=== PATIENT | male | born 1960 | race Caucasian/White ===

== ENCOUNTER → 2023-11-02 11:52 | Outpatient (CLI) | payer OTHER, SELFPAY ==
--- NOTE | 2023-11-02 11:54 | DI.RAD.S_ITS ---
PROCEDURE: XR SHOULDER RT MIN 2V INDICATIONS: right shoulder pain TECHNIQUE: 3 views of the shoulder were acquired. COMPARISON: None. FINDINGS: Bones: No fractures or dislocations. No suspicious bony lesions. Visualized ribs appear intact. Glenohumeral joint degenerative change. Soft tissues: No suspicious soft tissue calcifications. IMPRESSION: Glenohumeral joint degenerative change. No evidence acute bony abnormality. If clinical suspicion and/or symptoms persist, further assessment with repeat plain films, or advanced imaging (e.g., CT, MRI, or bone scan) may be helpful for further assessment. Dictated by: Ger Del Real M.D. on 11/02/2023 at 14:46 Approved by: Ger Del Real M.D. on 11/02/2023 at 14:47
== END ==
PROVIDERS: PCP Family Medicine; Referring Provider Family Medicine; Visit Provider Family Medicine
DX: M25.511 Pain in right shoulder (principal)
CPT/HCPCS: 73030

== ENCOUNTER → 2023-11-06 10:22 | Outpatient (CLI) | payer OTHER, SELFPAY ==
[2023-11-06 10:55] LABS: Add Manual Diff / Slide Review NO; Basophils Absolute Auto 0 /uL (0-100); Basophils Percent Auto 1.1 % (0-2); Eosinophils Absolute Auto 200 /uL (0-450); Hematocrit 39.4 % (41-53); Hemoglobin 13.6 g/dL (13.5-17.5); Lymphocytes Absolute Auto 1200 /uL (1100-4500); Lymphocytes Percent Auto 34.6 % (25-40); Mean Corpuscular HGB Conc 34.6 % (30-36); Mean Corpuscular Hemoglobin 31.5 PG (26-34); Mean Corpuscular Volume 91.1 fL (80-100); Monocytes Absolute Auto 400 /uL (0-900); Monocytes Percent Auto 10.1 % (3-14); Neutrophils Absolute Auto 1700 /uL (1500-7000); Neutrophils Percent Auto 49.2 % (50-75); Platelet Count 212 X10^3/uL (150-400); Red Blood Cell Count 4.33 X10^6/uL (4.5-5.9); Red Cell Distribution Width 13.4 % (11.6-14.8); White Blood Cell Count 3.5 X10^3/uL (4.5-11.0)
[2023-11-06 10:57] LABS: HEMOLYSIS < 15 (0-50)
[2023-11-06 11:03] LABS: Alanine Aminotransferase 17 IU/L (<50); Albumin 4.2 g/dL (3.5-5.0); Albumin Globulin Ratio 1.3 (1.0-2.8); Alkaline Phosphatase 29 U/L (38-126); Aspartate Aminotransferase 25 IU/L (17-59); BUN Creatinine Ratio 21.6 (6-22); Bilirubin Total 1.1 mg/dL (0.2-1.3); Blood Urea Nitrogen 16 mg/dL (9-20); Calcium 9.4 mg/dL (8.4-10.2); Carbon Dioxide 28 mmol/L (22-32); Chloride 102 mmol/L (98-107); Cholesterol 222 mg/dL (140-199); Estimated Glomerular Filt Rate > 60 mL/min (>60); Globulin 3.2 g/dL (1.7-4.1); Glucose 94 mg/dL (80-110); HDL Cholesterol 68 mg/dL (40-60); LDL Cholesterol Calculated 140 mg/dL (<100); Potassium 4.5 mmol/L (3.4-5.1); Sodium 137 mmol/L (137-145); Total Protein 7.4 g/dL (6.3-8.2); Triglycerides 71 mg/dL (35-150)
[2023-11-06 11:25] LABS: Vitamin D 25 Hydroxy (D3) 56.1 ng/mL (30.0-100.0)
== END ==
PROVIDERS: PCP Family Medicine; Referring Provider Family Medicine; Visit Provider Family Medicine
DX: Z13.6 Encounter for screening for cardiovascular disorders (principal); Z12.5 Encounter for screening for malignant neoplasm of prostate; R53.83 Other fatigue; D64.9 Anemia, unspecified
CPT/HCPCS: 36415; 80053; 80061; 82306; 84153; 84443; 85025

== ENCOUNTER 2024-03-26 10:30 | Outpatient (RCR) | payer OTHER, SELFPAY ==
--- NOTE | 2023-12-26 16:01 | PT.OIE ---
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 PT-OP-B Current Condition Start: 12/21/23 17:44 Freq: Status: Active Protocol: Document 12/26/23 09:47 LRN (Rec: 12/26/23 11:22 LRN [id number]) Current Condition History of Current Condition Onset Date 11/2023 Current Complaints Can't lift R arm past shoulder height at work. History of Current Condition Insidious onset of R shoulder pain a couple years ago. Possibly from over use while recovering from L clavical fracture or too much biking ( 2000 miles/yr). Pt referred to physical therapy after being seen by his doctor during a physical due to R shoulder weakness. [place] he tripped backing up over a log and valentin the R shoulder (no fall or stabilization with the R arn needed) and wasn't able to lift the arm higher than shoulder height afterward due to the pain. Prior to the stumble (4 months ago), he couldn't lift a 2# wgt past shoulder height. Prior Treatments and Tests In [place], Cortisone injection ~February 2022 and PT with resolution of pain. 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 Developmental History Developmental History PT after L clavicle fracture in [facility] 4 yrs ago. Has residual pain in L shoulder. 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 Moved to [place] last year. Treatment Goals Patient/Caregiver Goals Pt goal: PT before having cortisone injection if needed. Able to reach overhead with minimal to no pain with R arm Able to do saw motion or hammer nail with minimal to no pain (currently pain is 4-5/ 10). Sleeping w/o pain. Bike without pain. 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 Therapy/Recovery Plans to retire in a few months. PT-OP-C Subjective Start: 12/21/23 17:44 Freq: Status: Active Protocol: Document 12/26/23 09:47 LRN (Rec: 12/26/23 11:22 LRN [id number]) Patient Questionnaires Quick Dash- Upper Extremity Quick Dash UE Score 18 Quick Dash UE Impairment 1 to 19% Impaired (Score 1-19) OP-PT Pain Assessment Pain Assessment Grid Paper Pain Assessment Grid Completed Yes Location R shoulder Pain Location Details R shoulder pain, subacromially . Intensity 4 Scale Used Numeric (0 - 10) Description Sharp Frequency Intermittent Pain Duration Short if moving out of painful position. Variations/Patterns Pain only with reaching out to side or sawing/hammering motion. Other Pain Aggravating Factors Sawing & hammering motion. Pain Alleviating Factors Cold Other Pain Alleviating Factors Stopping the motion that causes the pain. Hot tub. PT-OP-J Posture/Palpation/Skin Start: 12/21/23 17:44 Freq: Status: Active Protocol: Document 12/26/23 09:47 LRN (Rec: 12/26/23 11:22 LRN [id number]) Posture Evaluation Position Standing Head/C-Spine Posture Forward Head T-Spine Posture Increased Kyphosis L-Spine Posture Increased Lordosis Shoulder Posture (L) Rounded,(R) Rounded,(L) Elevated Scapula Posture (R) Retracted,(R) Rotated Up Arm Posture (L) Neutral,(R) Neutral Palpation Assessment Location R shoulder Palpation Location Shoulder joint and scapular muscles Palpation Details No tenderness. Atrophy of R shoulder/neck ms. PT-OP-K Range of Motion Start: 12/21/23 17:44 Freq: Status: Active Protocol: Document 12/26/23 09:47 LRN (Rec: 12/26/23 11:22 LRN [id number]) Cervical Spine Range of Motion Cervical Spine Active Percentage Testing Position Sitting Rotation Right 90 Lateral Flexion Right 90 ROM Limitations Soft Tissue Tightness Comments 100% mobility except as indicated above. Shoulder Goniometric Range of Motion Shoulder Right Active Shoulder ROM WFL No Testing Position Sitting Flexion 155 Extension 60 Abduction 155 External Rotation at 0 degrees Abduction 90 Internal Rotation Behind Back (text) T10 Left Active Testing Position Sitting Flexion 135 Extension 70 Abduction 70 External Rotation at 0 degrees Abduction 90 Internal Rotation Behind Back (text) T11 PT-OP-L Special Tests Start: 12/21/23 17:44 Freq: Status: Active Protocol: Document 12/26/23 09:47 LRN (Rec: 12/26/23 11:22 LRN [id number]) Special Tests Cervical Spine Special Tests Foraminal Compression Test Results - Spurling's Test Test Results - bilaterally Shoulder Special Tests Biceps Load II Test Test Results - R shoulder Belly Press Test Results - R shoulder Empty Can Test Results - R shoulder Elevation Impingement Test Results + R shoulder Comments Pain IR/Horizontal ADD Impingement Test Results - R shoulder PT-OP-M Strength Start: 12/21/23 17:44 Freq: Status: Active Protocol: Document 12/26/23 09:47 LRN (Rec: 12/26/23 11:22 LRN [id number]) Cervical Spine Strength Cervical Spine Manual Muscle Testing Testing Position Sitting Comments Strength is 5/5 w/o complaints of pain. Shoulder Strength Shoulder Manual Muscle Testing Right Comments Strength is 5/5 with pain on testing of shoulder AD and horiz AB Left Comments Strength is 5/5 PT-OP-Q Treatments Start: 12/21/23 17:44 Freq: Status: Active Protocol: Document 12/26/23 09:47 LRN (Rec: 12/26/23 11:22 LRN [id number]) Manual Therapy Treatment Manual Techniques MWM for shoulder AB Type MWM: R scap retract with shoulder AB Body Position Sitting Comments Pain decreased from 4-5/10 to 2/10. Self-Care/Home Management Treatment Education Patient Education Home Exercise Program,Pain Management Other Education Discussed results of evaluation, goals, and plan of care (POC). Pt agreeable to goals and POC. Discussed and educated pt in use of cryotherapy vs MH (hot tub), when most appropriate to use each with injury. Briefly educated pt in his postural deviations and mechanics of shoulder for correct postioning for reaching out to side and up. Activities Self-Care/Home Management Activities I/S pt in Home ex: Stretching pecs on his home TBall. I/S pt to prevent slumping of thoracic spine. I/S pt to keep hand position of thumbs up when reaching/ lifting overhead and palm up when reaching out to side. PT-OP-T Assessment and Plan Start: 12/21/23 17:44 Freq: Status: Active Protocol: Document 12/26/23 09:47 LRN (Rec: 12/26/23 11:22 LRN [id number]) Physical Therapy Assessment Rehab Potential Rehabilitation Potential Excellent Evaluation Complexity Number of Personal Factors/Comorbidities 1-2 Number of Body Systems Impaired 4 or More Clinical Presentation at Evaluation Evolving Impairments Impairments Activity Tolerance,Pain, Posture,ROM,Soft Tissue Mobility Goals Three Impairment R shoulder pain interferring with sleep and recreational biking Short Term Goal (STG) Pt will modify his sleeping positions to be able to sleep at night without pain. STG Duration 4 wks-01/26/24 Metal Cleaner Goal (LTG) Pt will be able to bike outdoors for short rides without pain. LTG Duration 8 wks-02/23/24 Two Impairment R shoulder pain with saw and hammer motions interfering w/ home function Short Term Goal (STG) Pt able to reach overhead with minimal to no pain with R arm to decrease pain at work. STG Duration 4 wks-01/26/24 [facility] Goal (LTG) Able to do saw motion or hammer nail with minimal to no pain (currently pain is 4-5/ 10). Sleeping w/o pain. Bike without pain. LTG Duration 8 wks-02/23/24 One Impairment Pt lacks appropriate self care HEP Short Term Goal (STG) Pt will be educated in proper posturing (sit/stand), and in best nighttime sleeping positions. STG Duration 2 wks-01/12/24 [facility] Goal (LTG) Pt will be educate in a self care HEP of R shoulder/neck/ scapular/thoracic strengthening and thoracic mobility and L neck/shoulder relaxation stretch. LTG Duration 8 wks-02/23/24 Assessment Summary Assessment Pt is a 63 yo male who presents with soft tissue dysfunction (scap stabilizers) & mechanical dysfunction of the R shoulder resulting in subacromial pain with reaching overhead and laterally. He presents with postural changes of increased thoracic kyophosis, fwd rounded R shoulder, & scapular upward rotation resulting in impingement with R shoulder AB , horiz AB, & end-range flexion. The pt will benefit from skilled physical therapy to improve his posture and soft tissue dysfunctions, and improve mechanics of his R shoulder for improved function at work and at home. Physical Therapy Plan Frequency and Duration Frequency of Treatment 1x/Week Duration of treatment (weeks) 8 Plan of Care Start Date 12/26/23 Plan of Care End Date 02/23/24 Therapeutic Interventions Therapeutic Interventions Home Exercise Program,Joint Mobilizations,Manual Therapy, Neuromuscular Re-education, Patient/Caregiver Education, Self-Care/Home Management,Soft Tissue Mobilization,Taping, Therapeutic Exercises Modalities Cold Pack/Ice Massage,Electric Stimulation,Hot Packs, Ultrasound Next Visit Focus/Plan Next Note Type Treatment Note Next Visit Plan Pt to be on HEP as soon as possible due to his distance of travel from [place] for PT. Next: Pt education in proper posturing (sit/stand), and in best nighttime sleeping positions. HEP of postural ex's and R scapular stabilizers. Manual: MWM for painfree R shoulder AROM for sawing and hammering motions, postioning for biking, and lifting for work. Exer: R neck/shoulder strengthening and relaxation of L neck/ shoulder ms. Modalities as needed for pain.
--- NOTE | 2023-12-26 16:01 | PT.OPPOC ---
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 Address: [address] [place] [address], [id number] Email: [email or web address] Plan Of Care PT-OP-T Assessment and Plan Start: 12/21/23 17:44 Freq: Status: Active Protocol: Document 12/26/23 09:47 LRN (Rec: 12/26/23 11:22 LRN [id number]) Physical Therapy Assessment Rehab Potential Rehabilitation Potential Excellent Evaluation Complexity Number of Personal Factors/Comorbidities 1-2 Number of Body Systems Impaired 4 or More Clinical Presentation at Evaluation Evolving Impairments Impairments Activity Tolerance,Pain, Posture,ROM,Soft Tissue Mobility Goals Three Impairment R shoulder pain interferring with sleep and recreational biking Short Term Goal (STG) Pt will modify his sleeping positions to be able to sleep at night without pain. STG Duration 4 wks-01/26/24 Account Development Executive Goal (LTG) Pt will be able to bike outdoors for short rides without pain. LTG Duration 8 wks-02/23/24 Two Impairment R shoulder pain with saw and hammer motions interfering w/ home function Short Term Goal (STG) Pt able to reach overhead with minimal to no pain with R arm to decrease pain at work. STG Duration 4 wks-01/26/24 Jail Goal (LTG) Able to do saw motion or hammer nail with minimal to no pain (currently pain is 4-5/ 10). Sleeping w/o pain. Bike without pain. LTG Duration 8 wks-02/23/24 One Impairment Pt lacks appropriate self care HEP Short Term Goal (STG) Pt will be educated in proper posturing (sit/stand), and in best nighttime sleeping positions. STG Duration 2 wks-01/12/24 Account Development Executive Goal (LTG) Pt will be educate in a self care HEP of R shoulder/neck/ scapular/thoracic strengthening and thoracic mobility and L neck/shoulder relaxation stretch. LTG Duration 8 wks-02/23/24 Assessment Summary Assessment Pt is a 63 yo male who presents with soft tissue dysfunction (scap stabilizers) & mechanical dysfunction of the R shoulder resulting in subacromial pain with reaching overhead and laterally. He presents with postural changes of increased thoracic kyophosis, fwd rounded R shoulder, & scapular upward rotation resulting in impingement with R shoulder AB , horiz AB, & end-range flexion. The pt will benefit from skilled physical therapy to improve his posture and soft tissue dysfunctions, and improve mechanics of his R shoulder for improved function at work and at home. Physical Therapy Plan Frequency and Duration Frequency of Treatment 1x/Week Duration of treatment (weeks) 8 Plan of Care Start Date 12/26/23 Plan of Care End Date 02/23/24 Therapeutic Interventions Therapeutic Interventions Home Exercise Program,Joint Mobilizations,Manual Therapy, Neuromuscular Re-education, Patient/Caregiver Education, Self-Care/Home Management,Soft Tissue Mobilization,Taping, Therapeutic Exercises Modalities Cold Pack/Ice Massage,Electric Stimulation,Hot Packs, Ultrasound Next Visit Focus/Plan Next Note Type Treatment Note Next Visit Plan Pt to be on HEP as soon as possible due to his distance of travel from [place] for PT. Next: Pt education in proper posturing (sit/stand), and in best nighttime sleeping positions. HEP of postural ex's and R scapular stabilizers. Manual: MWM for painfree R shoulder AROM for sawing and hammering motions, postioning for biking, and lifting for work. Exer: R neck/shoulder strengthening and relaxation of L neck/ shoulder ms. Modalities as needed for pain. Plan of Care Dates Plan of Care Start Date 12/26/23 Plan of Care End Date 02/23/24 Electronically Signed by: Cathie Kohler, PT 12/26/23 8033 If you are in agreement with this Plan of Care, please return a signed and dated copy. I have reviewed this Plan of Care and certify that the skilled therapy services above are required to meet the patient?s needs. Physician Signature Date Printed Name and Credentials Clinical Instructor Signature Printed Name and Credentials
--- NOTE | 2023-12-28 12:28 | PT.OTN ---
Current Diagnoses Other chronic pain (12/28/23) Pain in right shoulder (12/28/23) Abnormal posture (12/28/23) Physical Therapy Treatment Note PT-OP-A Visit Information Start: 12/21/23 17:44 Freq: Status: Active Protocol: Document 12/28/23 11:21 LRN (Rec: 12/28/23 12:28 LRN [id number]) Out-Patient Physical Therapy Visit Information Visit Information Visit Type Treatment Note Visit Start Time 11:21 Visit Stop Time 12:03 Visit Number 2 Evaluation Information Evaluation Date 12/26/23 Precautions Precautions Fx'd L clavicle-4 yrs ago. PT-OP-B Current Condition Start: 12/21/23 17:44 Freq: Status: Active Protocol: Document 12/26/23 09:47 LRN (Rec: 12/26/23 11:22 LRN [id number]) Current Condition History of Current Condition Onset Date 11/2023 Current Complaints Can't lift R arm past shoulder height at work. History of Current Condition Insidious onset of R shoulder pain a couple years ago. Possibly from over use while recovering from L clavical fracture or too much biking ( 2000 miles/yr). Pt referred to physical therapy after being seen by his doctor during a physical due to R shoulder weakness. Then walking on the beach in Nov 2023 he tripped backing up over a log and valentin the R shoulder (no fall or stabilization with the R arn needed) and wasn't able to lift the arm higher than shoulder height afterward due to the pain. Prior to the stumble (4 months ago), he couldn't lift a 2# wgt past shoulder height. Prior Treatments and Tests In [place], Cortisone injection ~February 2022 and PT with resolution of pain. 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 Developmental History Developmental History PT after L clavicle fracture in [facility] 4 yrs ago. Has residual pain in L shoulder. 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 Moved to [place] last year. Treatment Goals Patient/Caregiver Goals Pt goal: PT before having cortisone injection if needed. Able to reach overhead with minimal to no pain with R arm Able to do saw motion or hammer nail with minimal to no pain (currently pain is 4-5/ 10). Sleeping w/o pain. Bike without pain. 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 Therapy/Recovery Plans to retire in a few months. PT-OP-C Subjective Start: 12/21/23 17:44 Freq: Status: Active Protocol: Document 12/28/23 11:21 LRN (Rec: 12/28/23 12:28 LRN [id number]) OP-PT Subjective Patient Comments Patient Comments States spouse had surgery yesterday on her wrist. Did not remember the pec stretch, so didn't do at home. PT-OP-J Posture/Palpation/Skin Start: 12/21/23 17:44 Freq: Status: Active Protocol: Document 12/26/23 09:47 LRN (Rec: 12/26/23 11:22 LRN [id number]) Posture Evaluation Position Standing Head/C-Spine Posture Forward Head T-Spine Posture Increased Kyphosis L-Spine Posture Increased Lordosis Shoulder Posture (L) Rounded,(R) Rounded,(L) Elevated Scapula Posture (R) Retracted,(R) Rotated Up Arm Posture (L) Neutral,(R) Neutral Palpation Assessment Location R shoulder Palpation Location Shoulder joint and scapular muscles Palpation Details No tenderness. Atrophy of R shoulder/neck ms. PT-OP-K Range of Motion Start: 12/21/23 17:44 Freq: Status: Active Protocol: Document 12/26/23 09:47 LRN (Rec: 12/26/23 11:22 LRN [id number]) Cervical Spine Range of Motion Cervical Spine Active Percentage Testing Position Sitting Rotation Right 90 Lateral Flexion Right 90 ROM Limitations Soft Tissue Tightness Comments 100% mobility except as indicated above. Shoulder Goniometric Range of Motion Shoulder Right Active Shoulder ROM WFL No Testing Position Sitting Flexion 155 Extension 60 Abduction 155 External Rotation at 0 degrees Abduction 90 Internal Rotation Behind Back (text) T10 Left Active Testing Position Sitting Flexion 135 Extension 70 Abduction 70 External Rotation at 0 degrees Abduction 90 Internal Rotation Behind Back (text) T11 PT-OP-L Special Tests Start: 12/21/23 17:44 Freq: Status: Active Protocol: Document 12/26/23 09:47 LRN (Rec: 12/26/23 11:22 LRN [id number]) Special Tests Cervical Spine Special Tests Foraminal Compression Test Results - Spurling's Test Test Results - bilaterally Shoulder Special Tests Biceps Load II Test Test Results - R shoulder Belly Press Test Results - R shoulder Empty Can Test Results - R shoulder Elevation Impingement Test Results + R shoulder Comments Pain IR/Horizontal ADD Impingement Test Results - R shoulder PT-OP-M Strength Start: 12/21/23 17:44 Freq: Status: Active Protocol: Document 12/26/23 09:47 LRN (Rec: 12/26/23 11:22 LRN [id number]) Cervical Spine Strength Cervical Spine Manual Muscle Testing Testing Position Sitting Comments Strength is 5/5 w/o complaints of pain. Shoulder Strength Shoulder Manual Muscle Testing Right Comments Strength is 5/5 with pain on testing of shoulder AD and horiz AB Left Comments Strength is 5/5 PT-OP-Q Treatments Start: 12/21/23 17:44 Freq: Status: Active Protocol: Document 12/28/23 11:21 LRN (Rec: 12/28/23 12:28 LRN [id number]) Cardio Equipment Upper Body Ergometer (UBE) Duration (Minutes) 8 RPM 100 Seat Position 9 Height 2.5 Other Cued not to ex into pain. Therapeutic Exercises Supine Exercises Scap retract Supine Exercise Name Scap retract on blue foam Side bilateral Equipment Used Blue foam roll Reps/Minutes 10 SH x 10-15 Pec stretch Supine Exercise Name On flat surface and On Blue Foam Noodle Equipment Used Blue Noodle Reps/Minutes 8' Comments Pt to breath through and relax pecs with stretch Shoulder flex stretch Supine Exercise Name Flex with both arms back and with R arm back. Side right Resistance Arm in pronation, neutral/AB 120 deg's & neutral flex Equipment Used Cane Reps/Minutes 8' Comments VC - not stretch into pain. Standing Exercises Lat pull down Standing Exercise Name Lat pull down for scap retract /depression Side bilateral Equipment Used L4 TB Reps/Minutes 6' Comments Phy cue for R scap retract/ depression. Scap retract/depression Standing Exercise Name Scap retract/depression with arms overhead Side bilateral Reps/Minutes 10x Comments Phy cuing for R scap retract/ depression and painfree shoulder flex Self-Care/Home Management Treatment Education Other Education Pt education in proper posturing (sit/stand) and RICE for pain management. Activities Self-Care/Home Management Activities Handouts issued for proper sit /stand posture, and pain mgmt (RICE). HEP: Pec stretch in sup & standing against wall; Scap stabilizers (scap retract, scap retract/depression without/with TBand) PT-OP-T Assessment and Plan Start: 12/21/23 17:44 Freq: Status: Active Protocol: Document 12/28/23 11:21 LRN (Rec: 12/28/23 12:28 LRN [id number]) Physical Therapy Assessment Goals Three Impairment R shoulder pain interferring with sleep and recreational biking Short Term Goal (STG) Pt will modify his sleeping positions to be able to sleep at night without pain. STG Duration 4 wks-01/26/24 Chcf Goal (LTG) Pt will be able to bike outdoors for short rides without pain. LTG Duration 8 wks-02/23/24 Two Impairment R shoulder pain with saw and hammer motions interfering w/ home function Short Term Goal (STG) Pt able to reach overhead with minimal to no pain with R arm to decrease pain at work. STG Duration 4 wks-01/26/24 Chcf Goal (LTG) Able to do saw motion or hammer nail with minimal to no pain (currently pain is 4-5/ 10). Sleeping w/o pain. Bike without pain. LTG Duration 8 wks-02/23/24 One Impairment Pt lacks appropriate self care HEP Short Term Goal (STG) Pt will be educated in proper posturing (sit/stand), and in best nighttime sleeping positions. 12/28/23: Educated pt in sit/ stand posture. STG Duration 2 wks-01/12/24 progressing 12/28/23 (need educ sleep positions) Customer Acquisition Specialist Goal (LTG) Pt will be educate in a self care HEP of R shoulder/neck/ scapular/thoracic strengthening and thoracic mobility and L neck/shoulder relaxation stretch. 12/28/23: HEP: scap stabilizers & I/S in R shoulder ROM ex. LTG Duration 8 wks-02/23/24 progressed Assessment Summary Assessment 63 yo male with soft tissue dysfunction (scap stabilizers) & mechanical dysfunction ( impingement due to kyphosis) of the R shoulder subacromial impingement pain with overhead and laterally reaching. Pt has tightness with supine flex stretch. Poor scapular retract/depression mobility noted. Physical Therapy Plan Frequency and Duration Frequency of Treatment 1x/Week Duration of treatment (weeks) 8 Plan of Care Start Date 12/26/23 Plan of Care End Date 02/23/24 Next Visit Focus/Plan Next Note Type Treatment Note Next Visit Plan Pt to be on HEP as soon as possible due to his distance of travel from [place] for PT. Next: Educate in best nighttime sleeping positions. HEP of postural ex's and R scapular stabilizers. Manual: Scap mob, MWM for: painfree R shoulder AROM for sawing and hammering motions, postioning for biking, and lifting for work. Exer: R neck/shoulder/thoracic strengthening and relaxation of L neck/shoulder ms. Modalities if needed for pain.
--- NOTE | 2024-01-02 16:45 | PT.OTN ---
Current Diagnoses Other chronic pain (01/02/24) Pain in right shoulder (01/02/24) Abnormal posture (01/02/24) Physical Therapy Treatment Note PT-OP-A Visit Information Start: 12/21/23 17:44 Freq: Status: Active Protocol: Document 01/02/24 10:34 NBM (Rec: 01/02/24 11:31 NBM [id number]) Out-Patient Physical Therapy Visit Information Visit Information Visit Type Treatment Note Visit Note technical issues w/ creating HEP contributed to visit length. Visit Start Time 10:35 Visit Stop Time 11:30 Visit Number 3 Number of PILOT CAPTAIN Visits 1 PT-OP-B Current Condition Start: 12/21/23 17:44 Freq: Status: Active Protocol: Document 12/26/23 09:47 LRN (Rec: 12/26/23 11:22 LRN [id number]) Current Condition History of Current Condition Onset Date 11/2023 Current Complaints Can't lift R arm past shoulder height at work. History of Current Condition Insidious onset of R shoulder pain a couple years ago. Possibly from over use while recovering from L clavical fracture or too much biking ( 2000 miles/yr). Pt referred to physical therapy after being seen by his doctor during a physical due to R shoulder weakness. Then walking on the beach in Nov 2023 he tripped backing up over a log and valentin the R shoulder (no fall or stabilization with the R arn needed) and wasn't able to lift the arm higher than shoulder height afterward due to the pain. Prior to the stumble (4 months ago), he couldn't lift a 2# wgt past shoulder height. Prior Treatments and Tests In [place], Cortisone injection ~February 2022 and PT with resolution of pain. 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 Developmental History Developmental History PT after L clavicle fracture in [facility] 4 yrs ago. Has residual pain in L shoulder. Works as [employer] in [employer] receiving [employer]. Moved to [place] last year. Treatment Goals Patient/Caregiver Goals Pt goal: PT before having cortisone injection if needed. Able to reach overhead with minimal to no pain with R arm Able to do saw motion or hammer nail with minimal to no pain (currently pain is 4-5/ 10). Sleeping w/o pain. Bike without pain. 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 Therapy/Recovery Plans to retire in a few months. PT-OP-C Subjective Start: 12/21/23 17:44 Freq: Status: Active Protocol: Document 01/02/24 10:34 NBM (Rec: 01/02/24 11:31 NBM [id number]) OP-PT Subjective Patient Comments Patient Comments Al reports PT-OP-J Posture/Palpation/Skin Start: 12/21/23 17:44 Freq: Status: Active Protocol: Document 12/26/23 09:47 LRN (Rec: 12/26/23 11:22 LRN [id number]) Posture Evaluation Position Standing Head/C-Spine Posture Forward Head T-Spine Posture Increased Kyphosis L-Spine Posture Increased Lordosis Shoulder Posture (L) Rounded,(R) Rounded,(L) Elevated Scapula Posture (R) Retracted,(R) Rotated Up Arm Posture (L) Neutral,(R) Neutral Palpation Assessment Location R shoulder Palpation Location Shoulder joint and scapular muscles Palpation Details No tenderness. Atrophy of R shoulder/neck ms. PT-OP-K Range of Motion Start: 12/21/23 17:44 Freq: Status: Active Protocol: Document 12/26/23 09:47 LRN (Rec: 12/26/23 11:22 LRN [id number]) Cervical Spine Range of Motion Cervical Spine Active Percentage Testing Position Sitting Rotation Right 90 Lateral Flexion Right 90 ROM Limitations Soft Tissue Tightness Comments 100% mobility except as indicated above. Shoulder Goniometric Range of Motion Shoulder Right Active Shoulder ROM WFL No Testing Position Sitting Flexion 155 Extension 60 Abduction 155 External Rotation at 0 degrees Abduction 90 Internal Rotation Behind Back (text) T10 Left Active Testing Position Sitting Flexion 135 Extension 70 Abduction 70 External Rotation at 0 degrees Abduction 90 Internal Rotation Behind Back (text) T11 PT-OP-L Special Tests Start: 12/21/23 17:44 Freq: Status: Active Protocol: Document 12/26/23 09:47 LRN (Rec: 12/26/23 11:22 LRN [id number]) Special Tests Cervical Spine Special Tests Foraminal Compression Test Results - Spurling's Test Test Results - bilaterally Shoulder Special Tests Biceps Load II Test Test Results - R shoulder Belly Press Test Results - R shoulder Empty Can Test Results - R shoulder Elevation Impingement Test Results + R shoulder Comments Pain IR/Horizontal ADD Impingement Test Results - R shoulder PT-OP-M Strength Start: 12/21/23 17:44 Freq: Status: Active Protocol: Document 12/26/23 09:47 LRN (Rec: 12/26/23 11:22 LRN [id number]) Cervical Spine Strength Cervical Spine Manual Muscle Testing Testing Position Sitting Comments Strength is 5/5 w/o complaints of pain. Shoulder Strength Shoulder Manual Muscle Testing Right Comments Strength is 5/5 with pain on testing of shoulder AD and horiz AB Left Comments Strength is 5/5 PT-OP-Q Treatments Start: 12/21/23 17:44 Freq: Status: Active Protocol: Document 01/02/24 10:34 NBM (Rec: 01/02/24 11:31 NBM [id number]) Cardio Equipment Upper Body Ergometer (UBE) Duration (Minutes) 8 RPM 100 Seat Position 10 Height 2.5 Other Cued not to ex into pain and for scapular setting. Therapeutic Exercises Sitting Exercises Shoulder ER Sitting Exercise Name shoulder external rotation - added to HEP Side bilateral Resistance Lvl 1 Tb Reps/Minutes x10 Comments initial cue for slower pacing, scapular setting posture Standing Exercises shoulder row Standing Exercise Name chest-height anchor - added to HEP Side bilateral Resistance Lvl 4 blue> Lvl 1 peach (latex free) Reps/Minutes Lvl 4 x2 w/ UT overactivation, Lvl1 x 10 no UT overactivation Shoulder extension Standing Exercise Name added to HEP Side bilateral Resistance Lvl 4 blue Reps/Minutes 2 x 5 triceps extension Standing Exercise Name added to HEP Resistance Lvl 4 blue (latex-free) Reps/Minutes x10 Shoulder abduction Standing Exercise Name standing on band, 0-45 deg ( before UT overactivation) Side bilateral Resistance Lvl 1 Tb Reps/Minutes 2 x5 Comments cues for UT overactivation w/ fatigue. Self-Care/Home Management Treatment Education Patient Education Body Mechanics,Home Exercise Program Other Education -Added to HEP: shoulder ER harish , Kelin Ext/Row/Abd Level 1 Tb and HO given. Discussion w/ pt to try to perform ea ex daily but advise if any barriers to doing so. -Pt sleeps on side on soft mattress. Edu to pt re: bed positioning in sidelying, cues for UT overactivation, and HO given encouraging pt to use pillow support for R UE support. PT-OP-T Assessment and Plan Start: 12/21/23 17:44 Freq: Status: Active Protocol: Document 01/02/24 10:34 NB (Rec: 01/02/24 11:31 [facility] [id number]) Physical Therapy Assessment Goals Three Impairment R shoulder pain interferring with sleep and recreational biking Short Term Goal (STG) Pt will modify his sleeping positions to be able to sleep at night without pain. STG Duration 4 wks-01/26/24 Halfway Goal (LTG) Pt will be able to bike outdoors for short rides without pain. LTG Duration 8 wks-02/23/24 Two Impairment R shoulder pain with saw and hammer motions interfering w/ home function Short Term Goal (STG) Pt able to reach overhead with minimal to no pain with R arm to decrease pain at work. STG Duration 4 wks-01/26/24 Halfway Goal (LTG) Able to do saw motion or hammer nail with minimal to no pain (currently pain is 4-5/ 10). Sleeping w/o pain. Bike without pain. LTG Duration 8 wks-02/23/24 One Impairment Pt lacks appropriate self care HEP Short Term Goal (STG) Pt will be educated in proper posturing (sit/stand), and in best nighttime sleeping positions. 12/28/23: Educated pt in sit/ stand posture. STG Duration 2 wks-01/12/24 progressing 12/28/23 (need educ sleep positions) Halfway Goal (LTG) Pt will be educate in a self care HEP of R shoulder/neck/ scapular/thoracic strengthening and thoracic mobility and L neck/shoulder relaxation stretch. 12/28/23: HEP: scap stabilizers & I/S in R shoulder ROM ex. LTG Duration 8 wks-02/23/24 progressed Assessment Summary Assessment Treatment focus on issuing HEP for improving scapular stability and education for bed positioning. Pt sidesleeps on soft mattress and is encouraged in sidesleeping on L w/ pillow support in front for R upper extremity - HO provided. Edu to pt to focus on scapular setting (tuck shoulder blades into back pockets with each resisted exercise. Pt requires cues for UT mm overactivation w/ fatigue w/ resisted shoulder abduction 0-45 deg. Issued HEP : resisted standing shoulder extension/rows/abduction and resisted seated bilateral shoulder ER - Lvl 1 theraband and HO given. Physical Therapy Plan Frequency and Duration Frequency of Treatment 1x/Week Duration of treatment (weeks) 8 Plan of Care Start Date 12/26/23 Plan of Care End Date 02/23/24 Therapeutic Interventions Therapeutic Interventions Home Exercise Program,Joint Mobilizations,Manual Therapy, Neuromuscular Re-education, Patient/Caregiver Education, Self-Care/Home Management,Soft Tissue Mobilization,Taping, Therapeutic Exercises Modalities Cold Pack/Ice Massage,Electric Stimulation,Hot Packs, Ultrasound Next Visit Focus/Plan Next Note Type Treatment Note Next Visit Plan Consider adding pec stretching and chin tucks to HEP. Pt to be on HEP as soon as possible due to his distance of travel from [place] for PT. Next: HEP of postural ex's and R scapular stabilizers. Manual: Scap mob, MWM for: painfree R shoulder AROM for sawing and hammering motions, postioning for biking, and lifting for work. Exer: R neck/shoulder/thoracic strengthening and relaxation of L neck/shoulder ms. Modalities if needed for pain.
--- NOTE | 2024-01-05 13:00 | PT.OTN ---
Current Diagnoses Other chronic pain (01/05/24) Pain in right shoulder (01/05/24) Abnormal posture (01/05/24) Physical Therapy Treatment Note PT-OP-A Visit Information Start: 12/21/23 17:44 Freq: Status: Active Protocol: Document 01/05/24 10:42 NBM (Rec: 01/05/24 11:29 NBM [id number]) Out-Patient Physical Therapy Visit Information Visit Information Visit Type Treatment Note Visit Start Time 10:35 Visit Stop Time 11:20 Visit Number 4 Number of DIRECTOR OF AUDIOLOGY Visits 2 PT-OP-B Current Condition Start: 12/21/23 17:44 Freq: Status: Active Protocol: Document 12/26/23 09:47 LRN (Rec: 12/26/23 11:22 LRN [id number]) Current Condition History of Current Condition Onset Date 11/2023 Current Complaints Can't lift R arm past shoulder height at work. History of Current Condition Insidious onset of R shoulder pain a couple years ago. Possibly from over use while recovering from L clavical fracture or too much biking ( 2000 miles/yr). Pt referred to physical therapy after being seen by his doctor during a physical due to R shoulder weakness. Then walking on the beach in Nov 2023 he tripped backing up over a log and valentin the R shoulder (no fall or stabilization with the R arn needed) and wasn't able to lift the arm higher than shoulder height afterward due to the pain. Prior to the stumble (4 months ago), he couldn't lift a 2# wgt past shoulder height. Prior Treatments and Tests In [place], Cortisone injection ~February 2022 and PT with resolution of pain. 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 Developmental History Developmental History PT after L clavicle fracture in [facility] 4 yrs ago. Has residual pain in L shoulder. 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 Moved to [place] last year. Treatment Goals Patient/Caregiver Goals Pt goal: PT before having cortisone injection if needed. Able to reach overhead with minimal to no pain with R arm Able to do saw motion or hammer nail with minimal to no pain (currently pain is 4-5/ 10). Sleeping w/o pain. Bike without pain. 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 Therapy/Recovery Plans to retire in a few months. PT-OP-C Subjective Start: 12/21/23 17:44 Freq: Status: Active Protocol: Document 01/05/24 10:42 NBM (Rec: 01/05/24 11:29 NBM [id number]) OP-PT Subjective Patient Comments Patient Comments Al reports he was sore after last visit for a day but does not think he overdid it. He rode up [place] after last visit. He did his ex's every day. He tried sleeping with pillow support under arm but the pillows moved around and he didn't notice a difference. He used the hot tub on Monday which felt good. Pain currently -02/27 - it's that nuisance pain. PT-OP-J Posture/Palpation/Skin Start: 12/21/23 17:44 Freq: Status: Active Protocol: Document 12/26/23 09:47 LRN (Rec: 12/26/23 11:22 LRN [id number]) Posture Evaluation Position Standing Head/C-Spine Posture Forward Head T-Spine Posture Increased Kyphosis L-Spine Posture Increased Lordosis Shoulder Posture (L) Rounded,(R) Rounded,(L) Elevated Scapula Posture (R) Retracted,(R) Rotated Up Arm Posture (L) Neutral,(R) Neutral Palpation Assessment Location R shoulder Palpation Location Shoulder joint and scapular muscles Palpation Details No tenderness. Atrophy of R shoulder/neck ms. PT-OP-K Range of Motion Start: 12/21/23 17:44 Freq: Status: Active Protocol: Document 12/26/23 09:47 LRN (Rec: 12/26/23 11:22 LRN [id number]) Cervical Spine Range of Motion Cervical Spine Active Percentage Testing Position Sitting Rotation Right 90 Lateral Flexion Right 90 ROM Limitations Soft Tissue Tightness Comments 100% mobility except as indicated above. Shoulder Goniometric Range of Motion Shoulder Right Active Shoulder ROM WFL No Testing Position Sitting Flexion 155 Extension 60 Abduction 155 External Rotation at 0 degrees Abduction 90 Internal Rotation Behind Back (text) T10 Left Active Testing Position Sitting Flexion 135 Extension 70 Abduction 70 External Rotation at 0 degrees Abduction 90 Internal Rotation Behind Back (text) T11 PT-OP-L Special Tests Start: 12/21/23 17:44 Freq: Status: Active Protocol: Document 12/26/23 09:47 LRN (Rec: 12/26/23 11:22 LRN [id number]) Special Tests Cervical Spine Special Tests Foraminal Compression Test Results - Spurling's Test Test Results - bilaterally Shoulder Special Tests Biceps Load II Test Test Results - R shoulder Belly Press Test Results - R shoulder Empty Can Test Results - R shoulder Elevation Impingement Test Results + R shoulder Comments Pain IR/Horizontal ADD Impingement Test Results - R shoulder PT-OP-M Strength Start: 12/21/23 17:44 Freq: Status: Active Protocol: Document 12/26/23 09:47 LRN (Rec: 12/26/23 11:22 LRN [id number]) Cervical Spine Strength Cervical Spine Manual Muscle Testing Testing Position Sitting Comments Strength is 5/5 w/o complaints of pain. Shoulder Strength Shoulder Manual Muscle Testing Right Comments Strength is 5/5 with pain on testing of shoulder AD and horiz AB Left Comments Strength is 5/5 PT-OP-Q Treatments Start: 12/21/23 17:44 Freq: Status: Active Protocol: Document 01/05/24 10:42 NBM (Rec: 01/05/24 11:29 NBM [id number]) Cardio Equipment Upper Body Ergometer (UBE) Duration (Minutes) 8 RPM 100 Seat Position 10 Height 2.5 Other Cued not to ex into pain and for scapular setting. Therapeutic Exercises Supine Exercises Lower trunk pushdown Supine Exercise Name h/l, slide hands palm down towards feet, then gently press down into table Side bilateral Equipment Used on pool noodle Reps/Minutes 10x5SH Comments cues no breathholding Scap retract Supine Exercise Name Scap retract on blue foam Side bilateral Equipment Used Blue foam roll Reps/Minutes 10 SH x 10-15 Pec stretch Supine Exercise Name On flat surface and On Blue Foam Noodle Equipment Used Blue Noodle Reps/Minutes 8' Comments Pt to breath through and relax pecs with stretch Sitting Exercises Shoulder ER Sitting Exercise Name shoulder external rotation - added to HEP Side bilateral Resistance Lvl 1 Tb Reps/Minutes x10 Comments initial cue for slower pacing, scapular setting posture Standing Exercises shoulder row Standing Exercise Name chest-height anchor - added to HEP Side bilateral Resistance Lvl 4 blue> Lvl 1 peach (latex free) Reps/Minutes Lvl 4 x2 w/ UT overactivation, Lvl1 x 10 no UT overactivation Shoulder extension Standing Exercise Name HEP Side bilateral Resistance Lvl 4 blue>Lvl 2 [place] Reps/Minutes Lvl 4x2, Lvl 2x10 Shoulder abduction Standing Exercise Name standing on band, 0-45 deg ( before UT overactivation) Side bilateral Resistance Lvl 1 Tb Equipment Used mirror Reps/Minutes 2 x5 Comments cues for UT overactivation w/ fatigue. Lat pull down Standing Exercise Name Lat pull down for scap retract /depression Side bilateral Equipment Used L4 TB Reps/Minutes 6' Comments Phy cue for R scap retract/ depression, eccentric control. Scap retract/depression Standing Exercise Name Scap retract/depression with arms overhead Side bilateral Reps/Minutes 10x Comments Phy cuing for R scap retract/ depression and painfree shoulder flex Self-Care/Home Management Treatment Education Patient Education Body Mechanics,Home Exercise Program Other Education HEP and Bed positioning review . -Postural emphasis for scapular setting and chin tuck with all ex's. -Pt reports use of pillow support for R UE in sidelying but pillow moves and pt doesn' t notice a difference with sleep. Edu to pt about supine sleep positioning options as well w/ review of previous sleep positioning handout. PT-OP-R Modalities Start: 12/21/23 17:44 Freq: Status: Active Protocol: Document 01/05/24 10:42 NBM (Rec: 01/05/24 11:29 [facility] [id number]) Hot Pack/Cold Pack Treatment Cold Pack Location R shoulder Patient Position Sitting Patient Tolerance Good PT-OP-T Assessment and Plan Start: 12/21/23 17:44 Freq: Status: Active Protocol: Document 01/05/24 10:42 NBM (Rec: 01/05/24 11:29 [facility] [id number]) Physical Therapy Assessment Goals Three Impairment R shoulder pain interferring with sleep and recreational biking Short Term Goal (STG) Pt will modify his sleeping positions to be able to sleep at night without pain. 01/02/24: Pt sidesleeps on soft mattress and is encouraged in sidesleeping on L w/ pillow support in front for R UE support - HO provided. 01/05/24: Pt reports s/l sleeping attempted w/ UE pillow support but it moves throughout the night. Reviewed supine bed positioning as well. STG Duration 4 wks-01/26/24 Assisted Goal (LTG) Pt will be able to bike outdoors for short rides without pain. 01/05/23: Pt reports riding bike up to [place] after last PT visit - does not think he overdid it. LTG Duration 8 wks-02/23/24 Two Impairment R shoulder pain with saw and hammer motions interfering w/ home function Short Term Goal (STG) Pt able to reach overhead with minimal to no pain with R arm to decrease pain at work. STG Duration 4 wks-01/26/24 Assisted Goal (LTG) Able to do saw motion or hammer nail with minimal to no pain (currently pain is 4-5/ 10). Sleeping w/o pain. Bike without pain. LTG Duration 8 wks-02/23/24 One Impairment Pt lacks appropriate self care HEP Short Term Goal (STG) Pt will be educated in proper posturing (sit/stand), and in best nighttime sleeping positions. 12/28/23: Educated pt in sit/ stand posture. STG Duration 2 wks-01/12/24 progressing 12/28/23 (need educ sleep positions) Circus Artist Goal (LTG) Pt will be educate in a self care HEP of R shoulder/neck/ scapular/thoracic strengthening and thoracic mobility and L neck/shoulder relaxation stretch. 12/28/23: HEP: scap stabilizers & I/S in R shoulder ROM ex. LTG Duration 8 wks-02/23/24 progressed Assessment Summary Assessment Treatment focus on HEP and bed positioning review. Pt's self -awareness of UT overactivation compensation w/ fatigue during resisted shoulder abduction improves with visual feedback of mirror . Postural emphasis with cues for scapular setting and chin tuck with all ex's today. R shoulder pain improves from 3- 4/10 start of session to 2-3/ 10 end of session before application of cryotherapy. Physical Therapy Plan Frequency and Duration Frequency of Treatment 1x/Week Duration of treatment (weeks) 8 Plan of Care Start Date 12/26/23 Plan of Care End Date 02/23/24 Therapeutic Interventions Therapeutic Interventions Home Exercise Program,Joint Mobilizations,Manual Therapy, Neuromuscular Re-education, Patient/Caregiver Education, Self-Care/Home Management,Soft Tissue Mobilization,Taping, Therapeutic Exercises Modalities Cold Pack/Ice Massage,Electric Stimulation,Hot Packs, Ultrasound Next Visit Focus/Plan Next Note Type Treatment Note Next Visit Plan Consider adding pec stretching and chin tucks to HEP. Pt to be on HEP as soon as possible due to his distance of travel from [place] for PT. Next: HEP of postural ex's and R scapular stabilizers. Manual: Scap mob, MWM for: painfree R shoulder AROM for sawing and hammering motions, postioning for biking, and lifting for work. Exer: R neck/shoulder/thoracic strengthening and relaxation of L neck/shoulder ms. Modalities if needed for pain.
--- NOTE | 2024-01-17 12:39 | PT.OTN ---
Current Diagnoses Other chronic pain (01/17/24) Pain in right shoulder (01/17/24) Abnormal posture (01/17/24) Physical Therapy Treatment Note PT-OP-A Visit Information Start: 12/21/23 17:44 Freq: Status: Active Protocol: Document 01/17/24 10:12 NBM (Rec: 01/17/24 11:20 NBM [id number]) Out-Patient Physical Therapy Visit Information Visit Information Visit Type Treatment Note Visit Start Time 10:30 Visit Stop Time 11:19 Visit Number 5 Number of VP MEDICAL Visits 3 PT-OP-B Current Condition Start: 12/21/23 17:44 Freq: Status: Active Protocol: Document 12/26/23 09:47 LRN (Rec: 12/26/23 11:22 LRN [id number]) Current Condition History of Current Condition Onset Date 11/2023 Current Complaints Can't lift R arm past shoulder height at work. History of Current Condition Insidious onset of R shoulder pain a couple years ago. Possibly from over use while recovering from L clavical fracture or too much biking ( 2000 miles/yr). Pt referred to physical therapy after being seen by his doctor during a physical due to R shoulder weakness. Then walking on the beach in Nov 2023 he tripped backing up over a log and valentin the R shoulder (no fall or stabilization with the R arn needed) and wasn't able to lift the arm higher than shoulder height afterward due to the pain. Prior to the stumble (4 months ago), he couldn't lift a 2# wgt past shoulder height. Prior Treatments and Tests In [place], Cortisone injection ~February 2022 and PT with resolution of pain. 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 Developmental History Developmental History PT after L clavicle fracture in [facility] 4 yrs ago. Has residual pain in L shoulder. 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 Moved to [place] last year. Treatment Goals Patient/Caregiver Goals Pt goal: PT before having cortisone injection if needed. Able to reach overhead with minimal to no pain with R arm Able to do saw motion or hammer nail with minimal to no pain (currently pain is 4-5/ 10). Sleeping w/o pain. Bike without pain. 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 Therapy/Recovery Plans to retire in a few months. PT-OP-C Subjective Start: 12/21/23 17:44 Freq: Status: Active Protocol: Document 01/17/24 10:12 NBM (Rec: 01/17/24 11:20 NBM [id number]) OP-PT Subjective Patient Comments Patient Comments Al reports lately his L shoulder has felt worse than his R shoulder. He hasn't gone bike riding since 01/02 when he rode up to [facility] but went mountain biking a couple of times with some R shoulder tightness but no pain; he is in a mountain bike race this weekend. He reports usual soreness this morning. When on vacation he did a lot of ex in the pool and does his ex's almost every day or some variation of them. The ex standing on the band is getting easier. If he turns his head to the L a certain way the L side of his neck/ shoulder feel really tight. End of session he states ultrasound has helped him in the past. PT-OP-J Posture/Palpation/Skin Start: 12/21/23 17:44 Freq: Status: Active Protocol: Document 12/26/23 09:47 LRN (Rec: 12/26/23 11:22 LRN [id number]) Posture Evaluation Position Standing Head/C-Spine Posture Forward Head T-Spine Posture Increased Kyphosis L-Spine Posture Increased Lordosis Shoulder Posture (L) Rounded,(R) Rounded,(L) Elevated Scapula Posture (R) Retracted,(R) Rotated Up Arm Posture (L) Neutral,(R) Neutral Palpation Assessment Location R shoulder Palpation Location Shoulder joint and scapular muscles Palpation Details No tenderness. Atrophy of R shoulder/neck ms. PT-OP-K Range of Motion Start: 12/21/23 17:44 Freq: Status: Active Protocol: Document 12/26/23 09:47 LRN (Rec: 12/26/23 11:22 LRN [id number]) Cervical Spine Range of Motion Cervical Spine Active Percentage Testing Position Sitting Rotation Right 90 Lateral Flexion Right 90 ROM Limitations Soft Tissue Tightness Comments 100% mobility except as indicated above. Shoulder Goniometric Range of Motion Shoulder Right Active Shoulder ROM WFL No Testing Position Sitting Flexion 155 Extension 60 Abduction 155 External Rotation at 0 degrees Abduction 90 Internal Rotation Behind Back (text) T10 Left Active Testing Position Sitting Flexion 135 Extension 70 Abduction 70 External Rotation at 0 degrees Abduction 90 Internal Rotation Behind Back (text) T11 PT-OP-L Special Tests Start: 12/21/23 17:44 Freq: Status: Active Protocol: Document 12/26/23 09:47 LRN (Rec: 12/26/23 11:22 LRN [id number]) Special Tests Cervical Spine Special Tests Foraminal Compression Test Results - Spurling's Test Test Results - bilaterally Shoulder Special Tests Biceps Load II Test Test Results - R shoulder Belly Press Test Results - R shoulder Empty Can Test Results - R shoulder Elevation Impingement Test Results + R shoulder Comments Pain IR/Horizontal ADD Impingement Test Results - R shoulder PT-OP-M Strength Start: 12/21/23 17:44 Freq: Status: Active Protocol: Document 12/26/23 09:47 LRN (Rec: 12/26/23 11:22 LRN [id number]) Cervical Spine Strength Cervical Spine Manual Muscle Testing Testing Position Sitting Comments Strength is 5/5 w/o complaints of pain. Shoulder Strength Shoulder Manual Muscle Testing Right Comments Strength is 5/5 with pain on testing of shoulder AD and horiz AB Left Comments Strength is 5/5 PT-OP-Q Treatments Start: 12/21/23 17:44 Freq: Status: Active Protocol: Document 01/17/24 10:12 NBM (Rec: 01/17/24 11:20 NBM [id number]) Cardio Equipment Upper Body Ergometer (UBE) Duration (Minutes) 6 RPM 100 Seat Position 10 Height 2.5 Other fwd/bwd 3' ea. Cued not to ex into pain and for scapular setting. Therapeutic Exercises Supine Exercises Pec stretch Supine Exercise Name On flat surface and On Blue Foam Noodle Equipment Used Blue Noodle Reps/Minutes 8' Comments Pt to breath through and relax pecs with stretch Shoulder flex stretch Supine Exercise Name Flex with both arms back and with R arm back. Side right Resistance Arm in pronation, neutral/AB 120 deg's & neutral flex Equipment Used Cane Reps/Minutes 5' Comments VC for pain-free range. Sitting Exercises Shoulder ER Sitting Exercise Name standing - shoulder external rotation Side bilateral Resistance Lvl 1 Tb Reps/Minutes 2x10 Comments initial cue for slower pacing, scapular setting posture Standing Exercises shoulder row Standing Exercise Name high and chest-height anchor HEP Side bilateral Resistance Lvl 2 orange(latex free) Reps/Minutes 2x10 Comments min cues for UT overactivaiton Shoulder extension Standing Exercise Name HEP Side bilateral Resistance Lvl 2 [place] Reps/Minutes 2x10 Shoulder abduction Standing Exercise Name standing on band, 0-45 deg ( before UT overactivation) Side bilateral Resistance Lvl 1 Tb Equipment Used mirror Reps/Minutes 2 x5 ea Comments cues for UT overactivation w/ fatigue. Lat pull down Standing Exercise Name Lat pull down for scap retract /depression Side bilateral Equipment Used L4 TB Reps/Minutes 3' Comments Phy cue for R scap retract/ depression, eccentric control. Scap retract/depression Standing Exercise Name Scap retract/depression with arms overhead Side bilateral Reps/Minutes 10x Comments Phy cuing for R scap retract/ depression and painfree shoulder flex Manual Therapy Treatment Soft Tissue Mobilization cervical Body Location B UT, LS, Scalenes Mobilization Type Other Intensity/Depth Moderate Body Position Hooklying Comments Manual pin and stretch min 30s each w/ cues for deep breathing. L>R tightness noted with each. Self-Care/Home Management Treatment Education Patient Education Home Exercise Program Other Education HEP review: resisted shoulder abd - pt encouraged 2x5 reps instead of 2x 10 reps due to UT overactivation w/ fatigue. Added to HEP: Pec stretch, chin tucks - HO given. PT-OP-R Modalities Start: 12/21/23 17:44 Freq: Status: Active Protocol: Document 01/17/24 10:12 NBM (Rec: 01/17/24 11:20 NBM [id number]) Hot Pack/Cold Pack Treatment Cold Pack Location R shoulder Patient Position Supine Patient Tolerance Good PT-OP-T Assessment and Plan Start: 12/21/23 17:44 Freq: Status: Active Protocol: Document 01/17/24 10:12 NBM (Rec: 01/17/24 11:20 NBM [id number]) Physical Therapy Assessment Goals Three Impairment R shoulder pain interferring with sleep and recreational biking Short Term Goal (STG) Pt will modify his sleeping positions to be able to sleep at night without pain. 01/02/24: Pt sidesleeps on soft mattress and is encouraged in sidesleeping on L w/ pillow support in front for R UE support - HO provided. 01/05/24: Pt reports s/l sleeping attempted w/ UE pillow support but it moves throughout the night. Reviewed supine bed positioning as well. STG Duration 4 wks-01/26/24 Half-Way Goal (LTG) Pt will be able to bike outdoors for short rides without pain. 01/05/23: Pt reports riding bike up to [place] after 01/02 PT visit - no pain but R shoulder tightness after mountain biking a couple of times. Mountain bike race this weekend. LTG Duration 8 wks-02/23/24 Two Impairment R shoulder pain with saw and hammer motions interfering w/ home function Short Term Goal (STG) Pt able to reach overhead with minimal to no pain with R arm to decrease pain at work. STG Duration 4 wks-01/26/24 Half-Way Goal (LTG) Able to do saw motion or hammer nail with minimal to no pain (currently pain is 4-5/ 10). Sleeping w/o pain. Bike without pain. LTG Duration 8 wks-02/23/24 One Impairment Pt lacks appropriate self care HEP Short Term Goal (STG) Pt will be educated in proper posturing (sit/stand), and in best nighttime sleeping positions. 12/28/23: Educated pt in sit/ stand posture. 01/02/24: Edu to pt re: bed positioning in sidelying, cues for UT overactivation, and bed positioning HO given encouraging pt to use pillow support for R UE support. 01/05/24: use of pillow support for R UE in s/l but pillow moves and pt doesn't notice a difference. Edu to pt about supine sleep positioning options as well w/ review of previous sleep positioning HO. STG Duration 2 wks-01/12/24 progressing 01/05/24 Half-Way Goal (LTG) Pt will be educate in a self care HEP of R shoulder/neck/ scapular/thoracic strengthening and thoracic mobility and L neck/shoulder relaxation stretch. 12/28/23: HEP: scap stabilizers & I/S in R shoulder ROM ex. 01/02/24: HEP: resisted doris ext/row/abd and harish ER - HO given. 01/17/24: HEP: supine pec stretch and supine chin tucks - HO given. LTG Duration 8 wks-02/23/24 progressed Assessment Summary Assessment Pt reports participating in mountain bike race this weekend. Al demonstrates improved endurance w/ resisted shoulder abduction 0-45 deg; pt again encouraged 2x5 reps instead of 2x10 reps due to UT overactivation w/ fatigue. He requires cues with supine AAROM shoulder flexion and with stretching in this position to maintain pain-free ROM. Observably improved cervical ROM post manual pin and stretch to bilateral Upper trapezius, Levator scapulae and Scalenes w/ L>R focus. Added to HEP: supine pec stretch and chin tucks - HO given. Physical Therapy Plan Frequency and Duration Frequency of Treatment 1x/Week Duration of treatment (weeks) 8 Plan of Care Start Date 12/26/23 Plan of Care End Date 02/23/24 Therapeutic Interventions Therapeutic Interventions Home Exercise Program,Joint Mobilizations,Manual Therapy, Neuromuscular Re-education, Patient/Caregiver Education, Self-Care/Home Management,Soft Tissue Mobilization,Taping, Therapeutic Exercises Modalities Cold Pack/Ice Massage,Electric Stimulation,Hot Packs, Ultrasound Next Visit Focus/Plan Next Note Type Treatment Note Next Visit Plan Consider Ultrasound per pt past exp, and cervical stretching/ROM ex's for HEP. POC: Pt to be on HEP as soon as possible due to his distance of travel from [place] for PT. Next: HEP of postural ex's and R scapular stabilizers. Manual: Scap mob, MWM for: painfree R shoulder AROM for sawing and hammering motions, postioning for biking, and lifting for work. Exer: R neck/shoulder/thoracic strengthening and relaxation of L neck/shoulder ms. Modalities if needed for pain.
--- NOTE | 2024-01-19 12:59 | PT.OTN ---
Current Diagnoses Other chronic pain (01/19/24) Pain in right shoulder (01/19/24) Abnormal posture (01/19/24) Physical Therapy Treatment Note PT-OP-A Visit Information Start: 12/21/23 17:44 Freq: Status: Active Protocol: Document 01/19/24 11:18 LRN (Rec: 01/19/24 12:08 LRN [id number]) Out-Patient Physical Therapy Visit Information Visit Information Visit Type Treatment Note Visit Start Time 11:19 Visit Stop Time 12:04 Visit Number 6 Evaluation Information Evaluation Date 12/26/23 PT-OP-B Current Condition Start: 12/21/23 17:44 Freq: Status: Active Protocol: Document 12/26/23 09:47 LRN (Rec: 12/26/23 11:22 LRN [id number]) Current Condition History of Current Condition Onset Date 11/2023 Current Complaints Can't lift R arm past shoulder height at work. History of Current Condition Insidious onset of R shoulder pain a couple years ago. Possibly from over use while recovering from L clavical fracture or too much biking ( 2000 miles/yr). Pt referred to physical therapy after being seen by his doctor during a physical due to R shoulder weakness. Then walking on the beach in Nov 2023 he tripped backing up over a log and valentin the R shoulder (no fall or stabilization with the R arn needed) and wasn't able to lift the arm higher than shoulder height afterward due to the pain. Prior to the stumble (4 months ago), he couldn't lift a 2# wgt past shoulder height. Prior Treatments and Tests In [place], Cortisone injection ~February 2022 and PT with resolution of pain. 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 Developmental History Developmental History PT after L clavicle fracture in [facility] 4 yrs ago. Has residual pain in L shoulder. 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 Moved to [place] last year. Treatment Goals Patient/Caregiver Goals Pt goal: PT before having cortisone injection if needed. Able to reach overhead with minimal to no pain with R arm Able to do saw motion or hammer nail with minimal to no pain (currently pain is 4-5/ 10). Sleeping w/o pain. Bike without pain. 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 Therapy/Recovery Plans to retire in a few months. PT-OP-C Subjective Start: 12/21/23 17:44 Freq: Status: Active Protocol: Document 01/19/24 11:18 LRN (Rec: 01/19/24 12:08 LRN [id number]) OP-PT Subjective Patient Comments Patient Comments States his pain is back and forth but the L shdr is stonger than the R, but the neck hurts more on the left is stiff. States he is stronger, but pain hasn't gone away. Wakes in moring with R shoulder is stiff and sore, not painful. States the neck stretches in therapy felt good , but not a huge difference in pain. Doing a [employer] Bike Race this weekend. PT-OP-J Posture/Palpation/Skin Start: 12/21/23 17:44 Freq: Status: Active Protocol: Document 12/26/23 09:47 LRN (Rec: 12/26/23 11:22 LRN [id number]) Posture Evaluation Position Standing Head/C-Spine Posture Forward Head T-Spine Posture Increased Kyphosis L-Spine Posture Increased Lordosis Shoulder Posture (L) Rounded,(R) Rounded,(L) Elevated Scapula Posture (R) Retracted,(R) Rotated Up Arm Posture (L) Neutral,(R) Neutral Palpation Assessment Location R shoulder Palpation Location Shoulder joint and scapular muscles Palpation Details No tenderness. Atrophy of R shoulder/neck ms. PT-OP-K Range of Motion Start: 12/21/23 17:44 Freq: Status: Active Protocol: Document 12/26/23 09:47 LRN (Rec: 12/26/23 11:22 LRN [id number]) Cervical Spine Range of Motion Cervical Spine Active Percentage Testing Position Sitting Rotation Right 90 Lateral Flexion Right 90 ROM Limitations Soft Tissue Tightness Comments 100% mobility except as indicated above. Shoulder Goniometric Range of Motion Shoulder Right Active Shoulder ROM WFL No Testing Position Sitting Flexion 155 Extension 60 Abduction 155 External Rotation at 0 degrees Abduction 90 Internal Rotation Behind Back (text) T10 Left Active Testing Position Sitting Flexion 135 Extension 70 Abduction 70 External Rotation at 0 degrees Abduction 90 Internal Rotation Behind Back (text) T11 PT-OP-L Special Tests Start: 12/21/23 17:44 Freq: Status: Active Protocol: Document 12/26/23 09:47 LRN (Rec: 12/26/23 11:22 LRN [id number]) Special Tests Cervical Spine Special Tests Foraminal Compression Test Results - Spurling's Test Test Results - bilaterally Shoulder Special Tests Biceps Load II Test Test Results - R shoulder Belly Press Test Results - R shoulder Empty Can Test Results - R shoulder Elevation Impingement Test Results + R shoulder Comments Pain IR/Horizontal ADD Impingement Test Results - R shoulder PT-OP-M Strength Start: 12/21/23 17:44 Freq: Status: Active Protocol: Document 12/26/23 09:47 LRN (Rec: 12/26/23 11:22 LRN [id number]) Cervical Spine Strength Cervical Spine Manual Muscle Testing Testing Position Sitting Comments Strength is 5/5 w/o complaints of pain. Shoulder Strength Shoulder Manual Muscle Testing Right Comments Strength is 5/5 with pain on testing of shoulder AD and horiz AB Left Comments Strength is 5/5 PT-OP-Q Treatments Start: 12/21/23 17:44 Freq: Status: Active Protocol: Document 01/19/24 11:18 LRN (Rec: 01/19/24 12:08 LRN [id number]) Cardio Equipment Upper Body Ergometer (UBE) Duration (Minutes) 8 RPM 80 Seat Position 10 Height Shoulder hgt Other 4' fwd/bwd. Cued for proper head/neck posture. Therapeutic Exercises Supine Exercises Lat Pull down Supine Exercise Name Lat Pull down Equipment Used L2 Reps/Minutes 6' Scap retract Supine Exercise Name Scap retract on blue foam Side bilateral Equipment Used Blue foam roll Reps/Minutes 10 SH x 10-15 Pec stretch Supine Exercise Name On flat surface and On Blue Foam Noodle Equipment Used Blue Noodle Reps/Minutes 4' Comments Pt to breath through and relax pecs with stretch Shoulder flex stretch Supine Exercise Name Flex with both arms back. Side right Resistance Arm in neutral/AB 160 deg's Equipment Used Cane Reps/Minutes 5' Comments Pt to move slow to retrain scap stabs with mvmt into shoulder flexion. Manual Therapy Treatment Manual Techniques MWM for Shdr Flex Type MWM for scap retract/ depression with flex. Body Location R Scapula Body Position Supine Reps/Duration 11' Comments Pt needed cuing for palm inward and for proper scap mvmt with flex. PT-OP-R Modalities Start: 12/21/23 17:44 Freq: Status: Active Protocol: Document 01/19/24 11:18 LRN (Rec: 01/19/24 12:08 LRN [id number]) Ultrasound Therapy Treatment R shoulder jt Patient Position Supine Coupling Medium Ultrasound Gel Applicator Size (cm2) 2 Frequency Setting (mHz) 3 Mode Setting Pulsed Duty Cycle 50% Intensity Setting (w/cm2) 1.0 PT-OP-T Assessment and Plan Start: 12/21/23 17:44 Freq: Status: Active Protocol: Document 01/19/24 11:18 LRN (Rec: 01/19/24 12:08 LRN [id number]) Physical Therapy Assessment Goals Three Impairment R shoulder pain interferring with sleep and recreational biking Short Term Goal (STG) Pt will modify his sleeping positions to be able to sleep at night without pain. 01/02/24: Pt sidesleeps on soft mattress and is encouraged in sidesleeping on L w/ pillow support in front for R UE support - HO provided. 01/05/24: Pt reports s/l sleeping attempted w/ UE pillow support but it moves throughout the night. Reviewed supine bed positioning as well. 01/19/24: Wakes with R shoulder soreness. STG Duration 4 wks-01/26/24 progressing 01/19/24 [facility] Goal (LTG) Pt will be able to bike outdoors for short rides without pain. 01/05/23: Pt reports riding bike up to [place] after 01/02 PT visit - no pain but R shoulder tightness after mountain biking a couple of times. Mountain bike race this weekend. 01/19/24: When arms are lower her shoulders doesn't bother him. He can [place]ike without shoulder pain. LTG Duration 8 wks-02/23/24 (01/19/24: MET GOAL) Two Impairment R shoulder pain with saw and hammer motions interfering w/ home function Short Term Goal (STG) Pt able to reach overhead with minimal to no pain with R arm to decrease pain at work. 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 Sleeping w/o pain. Bike without pain. LTG Duration 8 wks-02/23/24 One Impairment Pt lacks appropriate self care HEP Short Term Goal (STG) Pt will be educated in proper posturing (sit/stand), and in best nighttime sleeping positions. 12/28/23: Educated pt in sit/ stand posture. 01/02/24: Edu to pt re: bed positioning in sidelying, cues for UT overactivation, and bed positioning HO given encouraging pt to use pillow support for R UE support. 01/05/24: use of pillow support for R UE in s/l but pillow moves and pt doesn't notice a difference. Edu to pt about supine sleep positioning options as well w/ review of previous sleep positioning HO. 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 12/28/23: HEP: scap stabilizers & I/S in R shoulder ROM ex. 01/02/24: HEP: resisted doris ext/row/abd and harish ER - HO given. 01/17/24: HEP: supine pec stretch and supine chin tucks - HO given. LTG Duration 8 wks-02/23/24 progressed Assessment Summary Assessment 63 yo male with weak scap stabilizers & mechanical dysfunction (impingement due to kyphosis) of the R shoulder subacromial impingement pain with overhead and laterally reaching. He is having less pain at night sleeping, but further RC and scap stab strengthening as well as postural improvement with activities is needed to reduce impingement pain with overhead activities (lifting boxes overhead) Physical Therapy Plan Frequency and Duration Frequency of Treatment 1x/Week Duration of treatment (weeks) 8 Plan of Care Start Date 12/26/23 Plan of Care End Date 02/23/24 Next Visit Focus/Plan Next Note Type Treatment Note Next Visit Plan POC: 1x/wk once on RC/Scap stab program. Focus on HEP of postural ex's/R scapular stabilizers/RC (due to his distance of travel from [place] for PT). Next: HEP focus. Progress Scap stab, RC strengthening with focus on proper posture to avoid impingement. Cervical stretching/ROM ex's for HEP. Manual: Scap mob, MWM for: painfree R shoulder AROM for sawing and hammering motions, and lifting for work. E xer: R neck/shoulder/thoracic strengthening and relaxation of L neck/shoulder ms. Modality: Ultrasound if needed for pain mgmt after ex
--- NOTE | 2024-01-25 17:30 | PT.OTN ---
Current Diagnoses Other chronic pain (01/25/24) Pain in right shoulder (01/25/24) Abnormal posture (01/25/24) Physical Therapy Treatment Note PT-OP-A Visit Information Start: 12/21/23 17:44 Freq: Status: Active Protocol: Document 01/25/24 09:03 LRN (Rec: 01/25/24 09:51 LRN [id number]) Out-Patient Physical Therapy Visit Information Visit Information Visit Type Treatment Note Visit Start Time 09:03 Visit Stop Time 09:50 Visit Number 06/03 Evaluation Information Evaluation Date 12/26/23 PT-OP-B Current Condition Start: 12/21/23 17:44 Freq: Status: Active Protocol: Document 12/26/23 09:47 LRN (Rec: 12/26/23 11:22 LRN [id number]) Current Condition History of Current Condition Onset Date 11/2023 Current Complaints Can't lift R arm past shoulder height at work. History of Current Condition Insidious onset of R shoulder pain a couple years ago. Possibly from over use while recovering from L clavical fracture or too much biking ( 2000 miles/yr). Pt referred to physical therapy after being seen by his doctor during a physical due to R shoulder weakness. Then walking on the beach in Nov 2023 he tripped backing up over a log and valentin the R shoulder (no fall or stabilization with the R arn needed) and wasn't able to lift the arm higher than shoulder height afterward due to the pain. Prior to the stumble (4 months ago), he couldn't lift a 2# wgt past shoulder height. Prior Treatments and Tests In [place], Cortisone injection ~February 2022 and PT with resolution of pain. 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 Developmental History Developmental History PT after L clavicle fracture in [facility] 4 yrs ago. Has residual pain in L shoulder. 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 Moved to [place] last year. Treatment Goals Patient/Caregiver Goals Pt goal: PT before having cortisone injection if needed. Able to reach overhead with minimal to no pain with R arm Able to do saw motion or hammer nail with minimal to no pain (currently pain is 4-5/ 10). Sleeping w/o pain. Bike without pain. 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 Therapy/Recovery Plans to retire in a few months. PT-OP-C Subjective Start: 12/21/23 17:44 Freq: Status: Active Protocol: Document 01/25/24 09:03 LRN (Rec: 01/25/24 09:51 LRN [id number]) OP-PT Subjective Patient Comments Patient Comments States he is now able to lift from shouder hgt out to side, but not normal yet, must move slowly. Self K-taped his shoulder via [employer] for shoulder support; after weekend ride (16 miles - 1hr, 45min), 1/[address] through the R shoulder wasn't feeling too bad and opp shoulder was a little sore. No R shdr pain at end of ride. Neck was a little stifee. Feels [employer] helps. PT-OP-J Posture/Palpation/Skin Start: 12/21/23 17:44 Freq: Status: Active Protocol: Document 12/26/23 09:47 LRN (Rec: 12/26/23 11:22 LRN [id number]) Posture Evaluation Position Standing Head/C-Spine Posture Forward Head T-Spine Posture Increased Kyphosis L-Spine Posture Increased Lordosis Shoulder Posture (L) Rounded,(R) Rounded,(L) Elevated Scapula Posture (R) Retracted,(R) Rotated Up Arm Posture (L) Neutral,(R) Neutral Palpation Assessment Location R shoulder Palpation Location Shoulder joint and scapular muscles Palpation Details No tenderness. Atrophy of R shoulder/neck ms. PT-OP-K Range of Motion Start: 12/21/23 17:44 Freq: Status: Active Protocol: Document 12/26/23 09:47 LRN (Rec: 12/26/23 11:22 LRN [id number]) Cervical Spine Range of Motion Cervical Spine Active Percentage Testing Position Sitting Rotation Right 90 Lateral Flexion Right 90 ROM Limitations Soft Tissue Tightness Comments 100% mobility except as indicated above. Shoulder Goniometric Range of Motion Shoulder Right Active Shoulder ROM WFL No Testing Position Sitting Flexion 155 Extension 60 Abduction 155 External Rotation at 0 degrees Abduction 90 Internal Rotation Behind Back (text) T10 Left Active Testing Position Sitting Flexion 135 Extension 70 Abduction 70 External Rotation at 0 degrees Abduction 90 Internal Rotation Behind Back (text) T11 PT-OP-L Special Tests Start: 12/21/23 17:44 Freq: Status: Active Protocol: Document 12/26/23 09:47 LRN (Rec: 12/26/23 11:22 LRN [id number]) Special Tests Cervical Spine Special Tests Foraminal Compression Test Results - Spurling's Test Test Results - bilaterally Shoulder Special Tests Biceps Load II Test Test Results - R shoulder Belly Press Test Results - R shoulder Empty Can Test Results - R shoulder Elevation Impingement Test Results + R shoulder Comments Pain IR/Horizontal ADD Impingement Test Results - R shoulder PT-OP-M Strength Start: 12/21/23 17:44 Freq: Status: Active Protocol: Document 12/26/23 09:47 LRN (Rec: 12/26/23 11:22 LRN [id number]) Cervical Spine Strength Cervical Spine Manual Muscle Testing Testing Position Sitting Comments Strength is 5/5 w/o complaints of pain. Shoulder Strength Shoulder Manual Muscle Testing Right Comments Strength is 5/5 with pain on testing of shoulder AD and horiz AB Left Comments Strength is 5/5 PT-OP-Q Treatments Start: 12/21/23 17:44 Freq: Status: Active Protocol: Document 01/25/24 09:03 LRN (Rec: 01/25/24 09:51 LRN [id number]) Cardio Equipment Upper Body Ergometer (UBE) Duration (Minutes) 9 RPM 80 Seat Position 10 Height Shoulder hgt Other 4' fwd/bwd. Cued for proper head/neck posture. Therapeutic Exercises Supine Exercises Scalene stretch Supine Exercise Name Anter, Lat, Sourcing Associate Scalene stretches (L>R) Side bilateral Reps/Minutes 10 SH x 2 Comments Pt cued to L side stretching due to tightness. Lat Pull down Supine Exercise Name Lat Pull down Equipment Used L2 Reps/Minutes 6' Shoulder flex stretch Supine Exercise Name Flex with both arms back. Side right Resistance Arm in neutral/AB 160 deg's Equipment Used Cane Reps/Minutes 5' Comments Pt to move slow to retrain scap stabs with mvmt into shoulder flexion. Manual Therapy Treatment Soft Tissue Mobilization cervical Body Location Ashwin Scalenes Mobilization Type Sustained Pressure Body Position Supine Comments Pt cued to hold stretch PT-OP-R Modalities Start: 12/21/23 17:44 Freq: Status: Active Protocol: Document 01/25/24 09:03 LRN (Rec: 01/25/24 09:51 LRN [id number]) Ultrasound Therapy Treatment R shoulder jt Patient Position Supine Coupling Medium Ultrasound Gel Applicator Size (cm2) 2 Frequency Setting (mHz) 3 Mode Setting Pulsed Duty Cycle 50% Intensity Setting (w/cm2) 1.0 PT-OP-T Assessment and Plan Start: 12/21/23 17:44 Freq: Status: Active Protocol: Document 01/25/24 09:03 LRN (Rec: 01/25/24 09:51 LRN [id number]) Physical Therapy Assessment Goals Three Impairment R shoulder pain interferring with sleep and recreational biking Short Term Goal (STG) Pt will modify his sleeping positions to be able to sleep at night without pain. 01/02/24: Pt sidesleeps on soft mattress and is encouraged in sidesleeping on L w/ pillow support in front for R UE support - HO provided. 01/05/24: Pt reports s/l sleeping attempted w/ UE pillow support but it moves throughout the night. Reviewed supine bed positioning as well. 01/19/24: Wakes with R shoulder soreness. 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 01/05/23: Pt reports riding bike up to [place] after 01/02 PT visit - no pain but R shoulder tightness after mountain biking a couple of times. Mountain bike race this weekend. 01/19/24: When arms are lower her shoulders doesn't bother him. He can [place] without shoulder pain. LTG Duration 8 wks-02/23/24 (01/19/24: MET GOAL) Two Impairment R shoulder pain with saw and hammer motions interfering w/ home function Short Term Goal (STG) Pt able to reach overhead with minimal to no pain with R arm to decrease pain at work. STG Duration 4 wks-01/26/24 [facility] Goal (LTG) Able to do saw motion or hammer nail with minimal to no pain (currently pain is 4-5/ 10). Sleeping w/o pain. Bike without pain. LTG Duration 8 wks-02/23/24 One Impairment Pt lacks appropriate self care HEP Short Term Goal (STG) Pt will be educated in proper posturing (sit/stand), and in best nighttime sleeping positions. 12/28/23: Educated pt in sit/ stand posture. 01/02/24: Edu to pt re: bed positioning in sidelying, cues for UT overactivation, and bed positioning HO given encouraging pt to use pillow support for R UE support. 01/05/24: use of pillow support for R UE in s/l but pillow moves and pt doesn't notice a difference. Edu to pt about supine sleep positioning options as well w/ review of previous sleep positioning HO. STG Duration 2 wks-01/12/24 (01/25/24: MET GOAL on 01/05/24) [facility] Goal (LTG) Pt will be educate in a self care HEP of R shoulder/neck/ scapular/thoracic strengthening and thoracic mobility and L neck/shoulder relaxation stretch. 12/28/23: HEP: scap stabilizers & I/S in R shoulder ROM ex. 01/02/24: HEP: resisted doris ext/row/abd and ashwin ER - HO given. 01/17/24: HEP: supine pec stretch and supine chin tucks - HO given. 01/25/24: HEP: Scalene stretches in sup LTG Duration 8 wks-02/23/24 progressed Assessment Summary Assessment 63 yo male with weak scap stabilizers & impingement due to kyphosis; R shoulder subacromial impingement pain with overhead and laterally reaching. He is reporting overhead & lateral reaching with less discomfort. He is able to do mountain biking with R shdr K-taped (self) with no pain at end of 16 mile ride. Stretchng of Scalenes showed pt much tighter on L side, although R shoulder impingement more prevalent than L. His active and passive neck ROM is good. Physical Therapy Plan Frequency and Duration Frequency of Treatment 1x/Week Duration of treatment (weeks) 8 Plan of Care Start Date 12/26/23 Plan of Care End Date 02/23/24 Next Visit Focus/Plan Next Note Type Treatment Note Next Visit Plan POC: 1x/wk once on RC/Scap stab program. Focus on HEP of postural ex's/R scapular stabilizers/RC (due to his distance of travel from [place] for PT). Modality: Ultrasound after ex Next: K-tape to R scap to facilitated proper scap mvmt. HEP to Progress Scap stab, RC strengthening with focus on proper posture to avoid impingement. Manual: Scap mob, MWM for: painfree R shoulder AROM for sawing and hammering motions, and lifting for work. Exer: R neck/shoulder/ thoracic strengthening and relaxation of L neck/shoulder ms.
--- NOTE | 2024-01-30 13:00 | PT.OTN ---
Current Diagnoses Other chronic pain (01/30/24) Pain in right shoulder (01/30/24) Abnormal posture (01/30/24) Physical Therapy Treatment Note PT-OP-A Visit Information Start: 12/21/23 17:44 Freq: Status: Active Protocol: Document 01/30/24 10:38 NBM (Rec: 01/30/24 11:20 NBM [id number]) Out-Patient Physical Therapy Visit Information Visit Information Visit Type Treatment Note Visit Start Time 10:35 Visit Stop Time 11:20 Visit Number 15 Number of STRUCTURAL TECHNICIAN Visits 1 Evaluation Information Evaluation Date 12/26/23 PT-OP-B Current Condition Start: 12/21/23 17:44 Freq: Status: Active Protocol: Document 12/26/23 09:47 LRN (Rec: 12/26/23 11:22 LRN [id number]) Current Condition History of Current Condition Onset Date 11/2023 Current Complaints Can't lift R arm past shoulder height at work. History of Current Condition Insidious onset of R shoulder pain a couple years ago. Possibly from over use while recovering from L clavical fracture or too much biking ( 2000 miles/yr). Pt referred to physical therapy after being seen by his doctor during a physical due to R shoulder weakness. Then walking on the beach in Nov 2023 he tripped backing up over a log and valentin the R shoulder (no fall or stabilization with the R arn needed) and wasn't able to lift the arm higher than shoulder height afterward due to the pain. Prior to the stumble (4 months ago), he couldn't lift a 2# wgt past shoulder height. Prior Treatments and Tests In [place], Cortisone injection ~February 2022 and PT with resolution of pain. 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 Developmental History Developmental History PT after L clavicle fracture in [facility] 4 yrs ago. Has residual pain in L shoulder. 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 Moved to [place] last year. Treatment Goals Patient/Caregiver Goals Pt goal: PT before having cortisone injection if needed. Able to reach overhead with minimal to no pain with R arm Able to do saw motion or hammer nail with minimal to no pain (currently pain is 4-5/ 10). Sleeping w/o pain. Bike without pain. 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 Therapy/Recovery Plans to retire in a few months. PT-OP-C Subjective Start: 12/21/23 17:44 Freq: Status: Active Protocol: Document 01/30/24 10:38 NBM (Rec: 01/30/24 11:20 NBM [id number]) OP-PT Subjective Patient Comments Patient Comments Al reports the R shoulder is feeling better, especially since bike ride. He used KT tape on R shoulder which helped during mountain bike race. I should have done L shoulder too. Yesterday his L thumb started to hurt and it was difficult to hold stuff; he had been on bike it trainer for an hour and chainsawed earlier in the day. Probably between the two I irritated the heck out of something, I think, I don't know. He put icy hot, ibuprofen and a brace and it's better today. PT-OP-J Posture/Palpation/Skin Start: 12/21/23 17:44 Freq: Status: Active Protocol: Document 12/26/23 09:47 LRN (Rec: 12/26/23 11:22 LRN [id number]) Posture Evaluation Position Standing Head/C-Spine Posture Forward Head T-Spine Posture Increased Kyphosis L-Spine Posture Increased Lordosis Shoulder Posture (L) Rounded,(R) Rounded,(L) Elevated Scapula Posture (R) Retracted,(R) Rotated Up Arm Posture (L) Neutral,(R) Neutral Palpation Assessment Location R shoulder Palpation Location Shoulder joint and scapular muscles Palpation Details No tenderness. Atrophy of R shoulder/neck ms. PT-OP-K Range of Motion Start: 12/21/23 17:44 Freq: Status: Active Protocol: Document 12/26/23 09:47 LRN (Rec: 12/26/23 11:22 LRN [id number]) Cervical Spine Range of Motion Cervical Spine Active Percentage Testing Position Sitting Rotation Right 90 Lateral Flexion Right 90 ROM Limitations Soft Tissue Tightness Comments 100% mobility except as indicated above. Shoulder Goniometric Range of Motion Shoulder Right Active Shoulder ROM WFL No Testing Position Sitting Flexion 155 Extension 60 Abduction 155 External Rotation at 0 degrees Abduction 90 Internal Rotation Behind Back (text) T10 Left Active Testing Position Sitting Flexion 135 Extension 70 Abduction 70 External Rotation at 0 degrees Abduction 90 Internal Rotation Behind Back (text) T11 PT-OP-L Special Tests Start: 12/21/23 17:44 Freq: Status: Active Protocol: Document 12/26/23 09:47 LRN (Rec: 12/26/23 11:22 LRN [id number]) Special Tests Cervical Spine Special Tests Foraminal Compression Test Results - Spurling's Test Test Results - bilaterally Shoulder Special Tests Biceps Load II Test Test Results - R shoulder Belly Press Test Results - R shoulder Empty Can Test Results - R shoulder Elevation Impingement Test Results + R shoulder Comments Pain IR/Horizontal ADD Impingement Test Results - R shoulder PT-OP-M Strength Start: 12/21/23 17:44 Freq: Status: Active Protocol: Document 12/26/23 09:47 LRN (Rec: 12/26/23 11:22 LRN [id number]) Cervical Spine Strength Cervical Spine Manual Muscle Testing Testing Position Sitting Comments Strength is 5/5 w/o complaints of pain. Shoulder Strength Shoulder Manual Muscle Testing Right Comments Strength is 5/5 with pain on testing of shoulder AD and horiz AB Left Comments Strength is 5/5 PT-OP-Q Treatments Start: 12/21/23 17:44 Freq: Status: Active Protocol: Document 01/30/24 10:38 NBM (Rec: 01/30/24 11:20 NBM [id number]) Cardio Equipment Upper Body Ergometer (UBE) Duration (Minutes) 4 RPM 80 Seat Position 10 Height Shoulder hgt Other 2' fwd/bwd. Cued for proper head/neck posture. Therapeutic Exercises Supine Exercises Lat Pull down Supine Exercise Name Lat Pull down Equipment Used L2 Reps/Minutes 3' Comments no pain reported Shoulder flex stretch Supine Exercise Name Flex with both arms back. Side right Resistance Arm in neutral/AB 160 deg's Equipment Used Cane Reps/Minutes 5' Comments Pt to move slow to retrain scap stabs with mvmt into shoulder flex;no pain Sitting Exercises cervical stretches Sitting Exercise Name 1. UT 2. Scalenes 3. LS Side bilateral Reps/Minutes 2x30s ea Comments vc gentle, pain-free range, breathwork PT-OP-R Modalities Start: 12/21/23 17:44 Freq: Status: Active Protocol: Document 01/30/24 10:38 NBM (Rec: 01/30/24 11:20 NBM [id number]) Ultrasound Therapy Treatment R shoulder jt Patient Position Supine Coupling Medium Ultrasound Gel Applicator Size (cm2) 2 Frequency Setting (mHz) 3 Mode Setting Pulsed Duty Cycle 50% Intensity Setting (w/cm2) 1.0 PT-OP-T Assessment and Plan Start: 12/21/23 17:44 Freq: Status: Active Protocol: Document 01/30/24 10:38 NBM (Rec: 01/30/24 11:20 NBM [id number]) Physical Therapy Assessment Goals Three Impairment R shoulder pain interferring with sleep and recreational biking Short Term Goal (STG) Pt will modify his sleeping positions to be able to sleep at night without pain. 01/02/24: Pt sidesleeps on soft mattress and is encouraged in sidesleeping on L w/ pillow support in front for R UE support - HO provided. 01/05/24: Pt reports s/l sleeping attempted w/ UE pillow support but it moves throughout the night. Reviewed supine bed positioning as well. 01/19/24: Wakes with R shoulder soreness. 01/30/24: Pt reports he no longer wakes up due to R shoulder pain. The last two mornings he has woken up without R shoulder soreness. STG Duration 4 wks-01/26/24 (01/30/24: MET GOAL) Felt Hat Pouncing Operator Hand Goal (LTG) Pt will be able to bike outdoors for short rides without pain. 01/05/23: Pt reports riding bike up to [place] after 01/02 PT visit - no pain but R shoulder tightness after mountain biking a couple of times. Mountain bike race this weekend. 01/19/24: When arms are lower her shoulders doesn't bother him. He can [place]ike without shoulder pain. LTG Duration 8 wks-02/23/24 (01/19/24: MET GOAL) Two Impairment R shoulder pain with saw and hammer motions interfering w/ home function Short Term Goal (STG) Pt able to reach overhead with minimal to no pain with R arm to decrease pain at work. STG Duration 4 wks-01/26/24 Detention Goal (LTG) Able to do saw motion or hammer nail with minimal to no pain (currently pain is 4-5/ 10). Sleeping w/o pain. Bike without pain. 01/30/24 - pt used hammer motion to break stick and stopped due to R shoulder pain . Hasn't tried sawing motion recently. LTG Duration 8 wks-02/23/24 One Impairment Pt lacks appropriate self care HEP Short Term Goal (STG) Pt will be educated in proper posturing (sit/stand), and in best nighttime sleeping positions. 12/28/23: Educated pt in sit/ stand posture. 01/02/24: Edu to pt re: bed positioning in sidelying, cues for UT overactivation, and bed positioning HO given encouraging pt to use pillow support for R UE support. 01/05/24: use of pillow support for R UE in s/l but pillow moves and pt doesn't notice a difference. Edu to pt about supine sleep positioning options as well w/ review of previous sleep positioning HO. STG Duration 2 wks-01/12/24 (01/25/24: MET GOAL on 01/05/24) Felt Hat Pouncing Operator Hand Goal (LTG) Pt will be educate in a self care HEP of R shoulder/neck/ scapular/thoracic strengthening and thoracic mobility and L neck/shoulder relaxation stretch. 12/28/23: HEP: scap stabilizers & I/S in R shoulder ROM ex. 01/02/24: HEP: resisted doris ext/row/abd and harish ER - HO given. 01/17/24: HEP: supine pec stretch and supine chin tucks - HO given. 01/25/24: HEP: Scalene stretches in sup 01/30/24: HEP: Cervical stretches (UT, LS, Scalenes) in Sitting - HO declined. LTG Duration 8 wks-02/23/24 progressed Progress Towards Goals Progress Towards Goals Progressing Toward Goals,Goals Met Progress Comments STG Goal #3 MET: Pt will modify his sleeping positions to be able to sleep at night without pain. Assessment Summary Assessment Al continues to demonstrate progress towards goals and today meets STG #3 Pt will modify his sleeping positions to be able to sleep at night without pain. He is still reports pain with hammer motion (Goal #2). He reports 2 /10 pain start of session which is unchanged end of session with treatment focus on seated cervical stretching, scapular stability with supine overhead flexion and lat pulldown, and ultrasound to R shoulder. Pt requries occasional cues for scapular setting and no breathholding throughout treatment session. Physical Therapy Plan Frequency and Duration Frequency of Treatment 1x/Week Duration of treatment (weeks) 8 Plan of Care Start Date 12/26/23 Plan of Care End Date 02/23/24 Therapeutic Interventions Therapeutic Interventions Home Exercise Program,Joint Mobilizations,Manual Therapy, Neuromuscular Re-education, Patient/Caregiver Education, Self-Care/Home Management,Soft Tissue Mobilization,Taping, Therapeutic Exercises Modalities Cold Pack/Ice Massage,Electric Stimulation,Hot Packs, Ultrasound Next Visit Focus/Plan Next Note Type Treatment Note Next Visit Plan POC: 1x/wk once on RC/Scap stab program. Focus on HEP of postural ex's/R scapular stabilizers/RC (due to his distance of travel from [place] for PT). Modality: Ultrasound after ex Next: K-tape to R scap to facilitated proper scap mvmt. HEP to Progress Scap stab, RC strengthening with focus on proper posture to avoid impingement. Manual: Scap mob, MWM for: painfree R shoulder AROM for sawing and hammering motions, and lifting for work. Exer: R neck/shoulder/ thoracic strengthening and relaxation of L neck/shoulder ms.
--- NOTE | 2024-02-06 13:35 | PT.OTN ---
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 PT-OP-B Current Condition Start: 12/21/23 17:44 Freq: Status: Active Protocol: Document 12/26/23 09:47 LRN (Rec: 12/26/23 11:22 LRN [id number]) Current Condition History of Current Condition Onset Date 11/2023 Current Complaints Can't lift R arm past shoulder height at work. History of Current Condition Insidious onset of R shoulder pain a couple years ago. Possibly from over use while recovering from L clavical fracture or too much biking ( 2000 miles/yr). Pt referred to physical therapy after being seen by his doctor during a physical due to R shoulder weakness. Then walking on the beach in Nov 2023 he tripped backing up over a log and valentin the R shoulder (no fall or stabilization with the R arn needed) and wasn't able to lift the arm higher than shoulder height afterward due to the pain. Prior to the stumble (4 months ago), he couldn't lift a 2# wgt past shoulder height. Prior Treatments and Tests In [place], Cortisone injection ~February 2022 and PT with resolution of pain. 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 Developmental History Developmental History PT after L clavicle fracture in [facility] 4 yrs ago. Has residual pain in L shoulder. 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 Moved to [place] last year. Treatment Goals Patient/Caregiver Goals Pt goal: PT before having cortisone injection if needed. Able to reach overhead with minimal to no pain with R arm Able to do saw motion or hammer nail with minimal to no pain (currently pain is 4-5/ 10). Sleeping w/o pain. Bike without pain. 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 Therapy/Recovery Plans to retire in a few months. PT-OP-C Subjective Start: 12/21/23 17:44 Freq: Status: Active Protocol: Document 02/06/24 10:46 NBM (Rec: 02/06/24 13:35 NBM [id number]) OP-PT Subjective Patient Comments Patient Comments Al reports his hurt L thumb from last week is back to normal. He did road biking over the weekend and paddle boarding on Monday which went good. L shoulder bothers him in a different way than R shoulder but L still feels stronger than R. L side feels tighter than R. PT-OP-J Posture/Palpation/Skin Start: 12/21/23 17:44 Freq: Status: Active Protocol: Document 12/26/23 09:47 LRN (Rec: 12/26/23 11:22 LRN [id number]) Posture Evaluation Position Standing Head/C-Spine Posture Forward Head T-Spine Posture Increased Kyphosis L-Spine Posture Increased Lordosis Shoulder Posture (L) Rounded,(R) Rounded,(L) Elevated Scapula Posture (R) Retracted,(R) Rotated Up Arm Posture (L) Neutral,(R) Neutral Palpation Assessment Location R shoulder Palpation Location Shoulder joint and scapular muscles Palpation Details No tenderness. Atrophy of R shoulder/neck ms. PT-OP-K Range of Motion Start: 12/21/23 17:44 Freq: Status: Active Protocol: Document 12/26/23 09:47 LRN (Rec: 12/26/23 11:22 LRN [id number]) Cervical Spine Range of Motion Cervical Spine Active Percentage Testing Position Sitting Rotation Right 90 Lateral Flexion Right 90 ROM Limitations Soft Tissue Tightness Comments 100% mobility except as indicated above. Shoulder Goniometric Range of Motion Shoulder Right Active Shoulder ROM WFL No Testing Position Sitting Flexion 155 Extension 60 Abduction 155 External Rotation at 0 degrees Abduction 90 Internal Rotation Behind Back (text) T10 Left Active Testing Position Sitting Flexion 135 Extension 70 Abduction 70 External Rotation at 0 degrees Abduction 90 Internal Rotation Behind Back (text) T11 PT-OP-L Special Tests Start: 12/21/23 17:44 Freq: Status: Active Protocol: Document 12/26/23 09:47 LRN (Rec: 12/26/23 11:22 LRN [id number]) Special Tests Cervical Spine Special Tests Foraminal Compression Test Results - Spurling's Test Test Results - bilaterally Shoulder Special Tests Biceps Load II Test Test Results - R shoulder Belly Press Test Results - R shoulder Empty Can Test Results - R shoulder Elevation Impingement Test Results + R shoulder Comments Pain IR/Horizontal ADD Impingement Test Results - R shoulder PT-OP-M Strength Start: 12/21/23 17:44 Freq: Status: Active Protocol: Document 12/26/23 09:47 LRN (Rec: 12/26/23 11:22 LRN [id number]) Cervical Spine Strength Cervical Spine Manual Muscle Testing Testing Position Sitting Comments Strength is 5/5 w/o complaints of pain. Shoulder Strength Shoulder Manual Muscle Testing Right Comments Strength is 5/5 with pain on testing of shoulder AD and horiz AB Left Comments Strength is 5/5 PT-OP-Q Treatments Start: 12/21/23 17:44 Freq: Status: Active Protocol: Document 02/06/24 10:46 NBM (Rec: 02/06/24 13:35 NBM [id number]) Cardio Equipment Upper Body Ergometer (UBE) Duration (Minutes) 6 RPM 90 Seat Position 11 Height Shoulder hgt Other 3' fwd/bwd. Cued for proper head/neck posture and scap setting. Therapeutic Exercises Supine Exercises Scalene stretch Supine Exercise Name Anter, Lat, Racking Machine Operator Scalene stretches (L>R) Side bilateral Reps/Minutes 10 SH x 2 Comments Pt cued to L side stretching due to tightness. Lat Pull down Supine Exercise Name Lat Pull down Equipment Used L2 Reps/Minutes 3' Comments no pain reported Shoulder flex stretch Supine Exercise Name Flex with both arms back. Side right Resistance Arm in neutral/AB 160 deg's Equipment Used Cane Reps/Minutes 5' Comments Pt to move slow to retrain scap stabs with mvmt into shoulder flex;no pain Sitting Exercises cervical stretches Sitting Exercise Name 1. UT 2. Scalenes 3. LS Side bilateral Reps/Minutes 2x30s ea Comments modified to supine d/t c/o discomfort when switching sides. Manual Therapy Treatment Soft Tissue Mobilization cervical Body Location Harish Scalenes, R>L UT, LS Mobilization Type Rolling,Sustained Pressure Intensity/Depth Moderate Body Position Hooklying Comments Pt reports L side tighter but R side more tender to palpation. Manual pin and stretch R UT x30s. Self-Care/Home Management Treatment Education Patient Education Home Exercise Program Other Education Reminder to pt for chin tucks with posture. PT-OP-R Modalities Start: 12/21/23 17:44 Freq: Status: Active Protocol: Document 01/30/24 10:38 NBM (Rec: 01/30/24 11:20 NBM [id number]) Ultrasound Therapy Treatment R shoulder jt Patient Position Supine Coupling Medium Ultrasound Gel Applicator Size (cm2) 2 Frequency Setting (mHz) 3 Mode Setting Pulsed Duty Cycle 50% Intensity Setting (w/cm2) 1.0 PT-OP-T Assessment and Plan Start: 12/21/23 17:44 Freq: Status: Active Protocol: Document 02/06/24 10:46 NBM (Rec: 02/06/24 13:35 NBM [id number]) Physical Therapy Assessment Goals Three Impairment R shoulder pain interferring with sleep and recreational biking Short Term Goal (STG) Pt will modify his sleeping positions to be able to sleep at night without pain. 01/02/24: Pt sidesleeps on soft mattress and is encouraged in sidesleeping on L w/ pillow support in front for R UE support - HO provided. 01/05/24: Pt reports s/l sleeping attempted w/ UE pillow support but it moves throughout the night. Reviewed supine bed positioning as well. 01/19/24: Wakes with R shoulder soreness. 01/30/24: Pt reports he no longer wakes up due to R shoulder pain. The last two mornings he has woken up without R shoulder soreness. STG Duration 4 wks-01/26/24 (01/30/24: MET GOAL) Usp Goal (LTG) Pt will be able to bike outdoors for short rides without pain. 01/05/23: Pt reports riding bike up to [place] after 01/02 PT visit - no pain but R shoulder tightness after mountain biking a couple of times. Mountain bike race this weekend. 01/19/24: When arms are lower her shoulders doesn't bother him. He can [place] without shoulder pain. 02/06/24: Pt went road biking last weekend and wore his wrist brace just in case - reports no pain. LTG Duration 8 wks-02/23/24 (01/19/24: MET GOAL) Two Impairment R shoulder pain with saw and hammer motions interfering w/ home function Short Term Goal (STG) Pt able to reach overhead with minimal to no pain with R arm to decrease pain at work. STG Duration 4 wks-01/26/24 Usp Goal (LTG) Able to do saw motion or hammer nail with minimal to no pain (currently pain is 4-5/ 10). Sleeping w/o pain. Bike without pain. 01/30/24 - pt used hammer motion to break stick and stopped due to R shoulder pain . Hasn't tried sawing motion recently. 02/06/24 - no change. LTG Duration 8 wks-02/23/24 One Impairment Pt lacks appropriate self care HEP Short Term Goal (STG) Pt will be educated in proper posturing (sit/stand), and in best nighttime sleeping positions. 12/28/23: Educated pt in sit/ stand posture. 01/02/24: Edu to pt re: bed positioning in sidelying, cues for UT overactivation, and bed positioning HO given encouraging pt to use pillow support for R UE support. 01/05/24: use of pillow support for R UE in s/l but pillow moves and pt doesn't notice a difference. Edu to pt about supine sleep positioning options as well w/ review of previous sleep positioning HO. STG Duration 2 wks-01/12/24 (01/25/24: MET GOAL on 01/05/24) Usp Goal (LTG) Pt will be educate in a self care HEP of R shoulder/neck/ scapular/thoracic strengthening and thoracic mobility and L neck/shoulder relaxation stretch. 12/28/23: HEP: scap stabilizers & I/S in R shoulder ROM ex. 01/02/24: HEP: resisted doris ext/row/abd and harish ER - HO given. 01/17/24: HEP: supine pec stretch and supine chin tucks - HO given. 01/25/24: HEP: Scalene stretches in sup 01/30/24: HEP: Cervical stretches (UT, LS, Scalenes) in Sitting - HO declined. 02/06/24: HEP: Reviewed scalene stretches in supine from 01/25/24. LTG Duration 8 wks-02/23/24 progressed Assessment Summary Assessment Al is able to do road biking and paddle boarding recently without increased discomfort to R shoulder. He presents with L>R cervical muscle tightness, but R>L tenderness to palpation. Treatment focus on manual therapy R>L and scapular strengthening w/ overhead reach and pt demonstrates improving self-awareness of scapular setting in supine to improve R shoulder discomfort w/ overhead exercises. Cervical stretches modified from sitting to supine as per HEP due to pt complaint of discomfort when switching sides for bilateral stretch. Palpable tension and cervical range of motion observably improve after manual therapy; pt reports decreased R cervical muscle discomfort w/ movement in standing end of session. Reminder to pt for chin tucks with posture. Physical Therapy Plan Frequency and Duration Frequency of Treatment 1x/Week Duration of treatment (weeks) 8 Plan of Care Start Date 12/26/23 Plan of Care End Date 02/23/24 Therapeutic Interventions Therapeutic Interventions Home Exercise Program,Joint Mobilizations,Manual Therapy, Neuromuscular Re-education, Patient/Caregiver Education, Self-Care/Home Management,Soft Tissue Mobilization,Taping, Therapeutic Exercises Modalities Cold Pack/Ice Massage,Electric Stimulation,Hot Packs, Ultrasound Next Visit Focus/Plan Next Note Type Treatment Note Next Visit Plan POC: 1x/wk once on RC/Scap stab program. Focus on HEP of postural ex's/R scapular stabilizers/RC (due to his distance of travel from [place] for PT). Modality: Ultrasound after ex Next: K-tape to R scap to facilitated proper scap mvmt. HEP to Progress Scap stab, RC strengthening with focus on proper posture to avoid impingement. Manual: Scap mob, MWM for: painfree R shoulder AROM for sawing and hammering motions, and lifting for work. Exer: R neck/shoulder/ thoracic strengthening and relaxation of L neck/shoulder ms.
--- NOTE | 2024-02-13 16:27 | PT.OTN ---
Current Diagnoses Other chronic pain (02/13/24) Pain in right shoulder (02/13/24) Abnormal posture (02/13/24) Physical Therapy Treatment Note PT-OP-A Visit Information Start: 12/21/23 17:44 Freq: Status: Active Protocol: Document 02/13/24 10:34 LRN (Rec: 02/13/24 11:20 LRN [id number]) Out-Patient Physical Therapy Visit Information Visit Information Visit Type Treatment Note Visit Start Time 10:34 Visit Stop Time 11:17 Visit Number 09/03 Evaluation Information Evaluation Date 12/26/23 Precautions Precautions Fx'd L clavicle-4 yrs ago. PT-OP-B Current Condition Start: 12/21/23 17:44 Freq: Status: Active Protocol: Document 12/26/23 09:47 LRN (Rec: 12/26/23 11:22 LRN [id number]) Current Condition History of Current Condition Onset Date 11/2023 Current Complaints Can't lift R arm past shoulder height at work. History of Current Condition Insidious onset of R shoulder pain a couple years ago. Possibly from over use while recovering from L clavical fracture or too much biking ( 2000 miles/yr). Pt referred to physical therapy after being seen by his doctor during a physical due to R shoulder weakness. Then walking on the beach in Nov 2023 he tripped backing up over a log and valentin the R shoulder (no fall or stabilization with the R arn needed) and wasn't able to lift the arm higher than shoulder height afterward due to the pain. Prior to the stumble (4 months ago), he couldn't lift a 2# wgt past shoulder height. Prior Treatments and Tests In [place], Cortisone injection ~February 2022 and PT with resolution of pain. 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 Developmental History Developmental History PT after L clavicle fracture in [facility] 4 yrs ago. Has residual pain in L shoulder. Works as [employer] in [employer]. Moved to [place] last year. Treatment Goals Patient/Caregiver Goals Pt goal: PT before having cortisone injection if needed. Able to reach overhead with minimal to no pain with R arm Able to do saw motion or hammer nail with minimal to no pain (currently pain is 4-5/ 10). Sleeping w/o pain. Bike without pain. 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 Therapy/Recovery Plans to retire in a few months. PT-OP-C Subjective Start: 12/21/23 17:44 Freq: Status: Active Protocol: Document 02/13/24 10:34 LRN (Rec: 02/13/24 11:20 LRN [id number]) OP-PT Subjective Patient Comments Patient Comments R shoulder is getting better . Can do more with it with hand weights. Not quite normal. Hardest to do is to lift arm straight up to front or to the side (45 deg's and upward) with a wgt 4#, 8# (pt is R handed), states he can do it on the L side. PT-OP-J Posture/Palpation/Skin Start: 12/21/23 17:44 Freq: Status: Active Protocol: Document 12/26/23 09:47 LRN (Rec: 12/26/23 11:22 LRN [id number]) Posture Evaluation Position Standing Head/C-Spine Posture Forward Head T-Spine Posture Increased Kyphosis L-Spine Posture Increased Lordosis Shoulder Posture (L) Rounded,(R) Rounded,(L) Elevated Scapula Posture (R) Retracted,(R) Rotated Up Arm Posture (L) Neutral,(R) Neutral Palpation Assessment Location R shoulder Palpation Location Shoulder joint and scapular muscles Palpation Details No tenderness. Atrophy of R shoulder/neck ms. PT-OP-K Range of Motion Start: 12/21/23 17:44 Freq: Status: Active Protocol: Document 12/26/23 09:47 LRN (Rec: 12/26/23 11:22 LRN [id number]) Cervical Spine Range of Motion Cervical Spine Active Percentage Testing Position Sitting Rotation Right 90 Lateral Flexion Right 90 ROM Limitations Soft Tissue Tightness Comments 100% mobility except as indicated above. Shoulder Goniometric Range of Motion Shoulder Right Active Shoulder ROM WFL No Testing Position Sitting Flexion 155 Extension 60 Abduction 155 External Rotation at 0 degrees Abduction 90 Internal Rotation Behind Back (text) T10 Left Active Testing Position Sitting Flexion 135 Extension 70 Abduction 70 External Rotation at 0 degrees Abduction 90 Internal Rotation Behind Back (text) T11 PT-OP-L Special Tests Start: 12/21/23 17:44 Freq: Status: Active Protocol: Document 12/26/23 09:47 LRN (Rec: 12/26/23 11:22 LRN [id number]) Special Tests Cervical Spine Special Tests Foraminal Compression Test Results - Spurling's Test Test Results - bilaterally Shoulder Special Tests Biceps Load II Test Test Results - R shoulder Belly Press Test Results - R shoulder Empty Can Test Results - R shoulder Elevation Impingement Test Results + R shoulder Comments Pain IR/Horizontal ADD Impingement Test Results - R shoulder PT-OP-M Strength Start: 12/21/23 17:44 Freq: Status: Active Protocol: Document 12/26/23 09:47 LRN (Rec: 12/26/23 11:22 LRN [id number]) Cervical Spine Strength Cervical Spine Manual Muscle Testing Testing Position Sitting Comments Strength is 5/5 w/o complaints of pain. Shoulder Strength Shoulder Manual Muscle Testing Right Comments Strength is 5/5 with pain on testing of shoulder AD and horiz AB Left Comments Strength is 5/5 PT-OP-Q Treatments Start: 12/21/23 17:44 Freq: Status: Active Protocol: Document 02/13/24 10:34 LRN (Rec: 02/13/24 11:20 LRN [id number]) Therapeutic Exercises Supine Exercises Scalene stretch Supine Exercise Name Anter, Lat, Beam Builder Helper Scalene stretches (L>R) Side bilateral Reps/Minutes 10 SH x 2 Comments Pt cued to L side stretching due to tightness. Lat Pull down Supine Exercise Name Lat Pull down Equipment Used L3, 2#, wand Reps/Minutes 13' Comments discomfort at top of R shoulder pain reported Scap retract Supine Exercise Name Scap Pinches (arms 90 deg's AB , & 0 deg's AB-palms down) Side bilateral Reps/Minutes 15x each Comments Extra time to get coordinated scap retract/depression Shoulder flex stretch Supine Exercise Name Flex with both arms back. Side right Resistance Arm in neutral/AB 160 deg's Equipment Used Cane Reps/Minutes 7' Comments Pt to move slow to retrain scap stabs with mvmt into shoulder flex;no pain Manual Therapy Treatment Soft Tissue Mobilization L Clavicle Body Location Scalenes along L clavicle Mobilization Type Trigger Point Release Intensity/Depth Superficial Body Position Supine Joint Mobilizations R Scapula Joint R Scapular Direction Distraction, Super>Inferior, Protraction/Retraction. Body Position Sidelying Reps/Duration 6' PT-OP-R Modalities Start: 12/21/23 17:44 Freq: Status: Active Protocol: Document 01/30/24 10:38 NBM (Rec: 01/30/24 11:20 NBM [id number]) Ultrasound Therapy Treatment R shoulder jt Patient Position Supine Coupling Medium Ultrasound Gel Applicator Size (cm2) 2 Frequency Setting (mHz) 3 Mode Setting Pulsed Duty Cycle 50% Intensity Setting (w/cm2) 1.0 PT-OP-T Assessment and Plan Start: 12/21/23 17:44 Freq: Status: Active Protocol: Document 02/13/24 10:34 LRN (Rec: 02/13/24 11:20 LRN [id number]) Physical Therapy Assessment Goals Three Impairment R shoulder pain interferring with sleep and recreational biking Short Term Goal (STG) Pt will modify his sleeping positions to be able to sleep at night without pain. 01/02/24: Pt sidesleeps on soft mattress and is encouraged in sidesleeping on L w/ pillow support in front for R UE support - HO provided. 01/05/24: Pt reports s/l sleeping attempted w/ UE pillow support but it moves throughout the night. Reviewed supine bed positioning as well. 01/19/24: Wakes with R shoulder soreness. 01/30/24: Pt reports he no longer wakes up due to R shoulder pain. The last two mornings he has woken up without R shoulder soreness. STG Duration 4 wks-01/26/24 (01/30/24: MET GOAL) [facility] Goal (LTG) Pt will be able to bike outdoors for short rides without pain. 01/05/23: Pt reports riding bike up to [place] after 01/02 PT visit - no pain but R shoulder tightness after mountain biking a couple of times. Mountain bike race this weekend. 01/19/24: When arms are lower her shoulders doesn't bother him. He can [place]ike without shoulder pain. 02/06/24: Pt went road biking last weekend and wore his wrist brace just in case - reports no pain. LTG Duration 8 wks-02/23/24 (01/19/24: MET GOAL) Two Impairment R shoulder pain with saw and hammer motions interfering w/ home function Short Term Goal (STG) Pt able to reach overhead with minimal to no pain with R arm to decrease pain at work. STG Duration 4 wks-01/26/24 [facility] Goal (LTG) Able to do saw motion or hammer nail with minimal to no pain (currently pain is 4-5/ 10). Sleeping w/o pain. Bike without pain. 01/30/24 - pt used hammer motion to break stick and stopped due to R shoulder pain . Hasn't tried sawing motion recently. 02/06/24 - no change. LTG Duration 8 wks-02/23/24 One Impairment Pt lacks appropriate self care HEP Short Term Goal (STG) Pt will be educated in proper posturing (sit/stand), and in best nighttime sleeping positions. 12/28/23: Educated pt in sit/ stand posture. 01/02/24: Edu to pt re: bed positioning in sidelying, cues for UT overactivation, and bed positioning HO given encouraging pt to use pillow support for R UE support. 01/05/24: use of pillow support for R UE in s/l but pillow moves and pt doesn't notice a difference. Edu to pt about supine sleep positioning options as well w/ review of previous sleep positioning HO. STG Duration 2 wks-01/12/24 (01/25/24: MET GOAL on 01/05/24) [facility] Goal (LTG) Pt will be educate in a self care HEP of R shoulder/neck/ scapular/thoracic strengthening and thoracic mobility and L neck/shoulder relaxation stretch. 12/28/23: HEP: scap stabilizers & I/S in R shoulder ROM ex. 01/02/24: HEP: resisted doris ext/row/abd and harish ER - HO given. 01/17/24: HEP: supine pec stretch and supine chin tucks - HO given. 01/25/24: HEP: Scalene stretches in sup 01/30/24: HEP: Cervical stretches (UT, LS, Scalenes) in Sitting - HO declined. 02/06/24: HEP: Reviewed scalene stretches in supine from 01/25/24. LTG Duration 8 wks-02/23/24 progressed Assessment Summary Assessment 63 yo male being treated for weak scap stabilizers & mechanical dysfunction ( impingement due to kyphosis) of the R shoulder subacromial impingement pain. He has pain with lifting a wgt from 45- 180 deg's overhead and laterally. Hardest to do is to lift arm straight up to front or to the side (45 deg's and upward). Needs scapular training, postural ex's, shoulder strengthening for sawing and hammering motions, and lifting for work. Physical Therapy Plan Frequency and Duration Frequency of Treatment 1x/Week Duration of treatment (weeks) 8 Plan of Care Start Date 12/26/23 Plan of Care End Date 02/23/24 Next Visit Focus/Plan Next Note Type Progress Note Next Visit Plan PN to extend POC for 4 visits. POC: 1x/wk (due to him coming from [place]) on RC/ Scap stab program. Focus on HEP of postural ex's/R scapular stabilizers/RC. Modality if needed: Ultrasound after ex. Next: Scap mob; K-tape to R scap to facilitated proper scap mvmt. HEP to Progress Scap stab, RC strengthening with focus on proper posture to avoid impingement. Manual: MWM for: painfree R shoulder AROM for sawing and hammering motions, and lifting for work. Exer: R neck/shoulder/ thoracic strengthening and relaxation of L neck/shoulder ms.
--- NOTE | 2024-02-22 10:59 | PT.OTN ---
Addendum entered and electronically signed by Cathie Kohler, PT 02/22/24 16:06: Questionnaires completed after treatment time: UE Quickdash Score - 9.09 (was 18.18). Pain rating: R shoulder 2/10 (was 4/10) L shoulder 0/10 (was 3/10). Original Note: Current Diagnoses Other chronic pain (02/22/24) Pain in right shoulder (02/22/24) Abnormal posture (02/22/24) Physical Therapy Treatment Note PT-OP-A Visit Information Start: 12/21/23 17:44 Freq: Status: Active Protocol: Document 02/22/24 09:50 LRN (Rec: 02/22/24 10:55 LRN [id number]) Out-Patient Physical Therapy Visit Information Visit Information Visit Type Progress Note Visit Start Time 09:50 Visit Stop Time 10:39 Visit Number 10/04 Evaluation Information Evaluation Date 12/26/23 Precautions Precautions Fx'd L clavicle-4 yrs ago. PT-OP-B Current Condition Start: 12/21/23 17:44 Freq: Status: Active Protocol: Document 12/26/23 09:47 LRN (Rec: 12/26/23 11:22 LRN [id number]) Current Condition History of Current Condition Onset Date 11/2023 Current Complaints Can't lift R arm past shoulder height at work. History of Current Condition Insidious onset of R shoulder pain a couple years ago. Possibly from over use while recovering from L clavical fracture or too much biking ( 2000 miles/yr). Pt referred to physical therapy after being seen by his doctor during a physical due to R shoulder weakness. Then walking on the beach in Nov 2023 he tripped backing up over a log and valentin the R shoulder (no fall or stabilization with the R arn needed) and wasn't able to lift the arm higher than shoulder height afterward due to the pain. Prior to the stumble (4 months ago), he couldn't lift a 2# wgt past shoulder height. Prior Treatments and Tests In [place], Cortisone injection ~February 2022 and PT with resolution of pain. 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 Developmental History Developmental History PT after L clavicle fracture in [facility] 4 yrs ago. Has residual pain in L shoulder. 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 Moved to [place] last year. Treatment Goals Patient/Caregiver Goals Pt goal: PT before having cortisone injection if needed. Able to reach overhead with minimal to no pain with R arm Able to do saw motion or hammer nail with minimal to no pain (currently pain is 4-5/ 10). Sleeping w/o pain. Bike without pain. 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 Therapy/Recovery Plans to retire in a few months. PT-OP-C Subjective Start: 12/21/23 17:44 Freq: Status: Active Protocol: Document 02/22/24 09:50 LRN (Rec: 02/22/24 10:55 LRN [id number]) OP-PT Subjective Patient Comments Patient Comments Feels he is incrementally improving with more strength and less pain. Used saw over the weekend and was able to do without causing R shoulder pain. PT-OP-J Posture/Palpation/Skin Start: 12/21/23 17:44 Freq: Status: Active Protocol: Document 12/26/23 09:47 LRN (Rec: 12/26/23 11:22 LRN [id number]) Posture Evaluation Position Standing Head/C-Spine Posture Forward Head T-Spine Posture Increased Kyphosis L-Spine Posture Increased Lordosis Shoulder Posture (L) Rounded,(R) Rounded,(L) Elevated Scapula Posture (R) Retracted,(R) Rotated Up Arm Posture (L) Neutral,(R) Neutral Palpation Assessment Location R shoulder Palpation Location Shoulder joint and scapular muscles Palpation Details No tenderness. Atrophy of R shoulder/neck ms. PT-OP-K Range of Motion Start: 12/21/23 17:44 Freq: Status: Active Protocol: Document 02/22/24 09:50 LRN (Rec: 02/22/24 10:55 LRN [id number]) Shoulder Goniometric Range of Motion Shoulder Right Active Shoulder ROM WFL No Testing Position Sitting Flexion 165 Extension 70 Abduction 172 External Rotation at 0 degrees Abduction 90 Internal Rotation Behind Back (text) T10 Left Active Testing Position Sitting Flexion 157 Extension 70 Abduction 172 External Rotation at 0 degrees Abduction 90 Internal Rotation Behind Back (text) T11 PT-OP-L Special Tests Start: 12/21/23 17:44 Freq: Status: Active Protocol: Document 12/26/23 09:47 LRN (Rec: 12/26/23 11:22 LRN [id number]) Special Tests Cervical Spine Special Tests Foraminal Compression Test Results - Spurling's Test Test Results - bilaterally Shoulder Special Tests Biceps Load II Test Test Results - R shoulder Belly Press Test Results - R shoulder Empty Can Test Results - R shoulder Elevation Impingement Test Results + R shoulder Comments Pain IR/Horizontal ADD Impingement Test Results - R shoulder PT-OP-M Strength Start: 12/21/23 17:44 Freq: Status: Active Protocol: Document 02/22/24 09:50 LRN (Rec: 02/22/24 10:57 LRN [id number]) Shoulder Strength Shoulder Manual Muscle Testing Right Flexion 4+ Good+ Comments Strength is 5/5 except as indicated above. No c/o pain with MMT except with flexion. Left Comments Strength is 5/5 PT-OP-Q Treatments Start: 12/21/23 17:44 Freq: Status: Active Protocol: Document 02/22/24 09:50 LRN (Rec: 02/22/24 10:55 LRN [id number]) Cardio Equipment Upper Body Ergometer (UBE) Duration (Minutes) 8 RPM 60 Seat Position 9 Height 5 Other 3'fwd/bkwd, cued for proper head/neck posture & scap setting. Therapeutic Exercises Supine Exercises Scalene stretch Supine Exercise Name Anter, Lat, Concrete Worker Scalene stretches (L>R) Side bilateral Reps/Minutes 20 SH x 2 Comments Pt cued to L side stretching due to tightness. Pec stretch Supine Exercise Name Pec and shoulder ER stretch Side bilateral Reps/Minutes 3' Shoulder flex stretch Supine Exercise Name Flex with both arms back. Side right Resistance Arm in neutral/AB 160 deg's Equipment Used Cane Reps/Minutes 7' Comments Pt to move slow to retrain scap stabs with mvmt into shoulder flex;no pain Sitting Exercises Shoulder flex strengthenig Sitting Exercise Name R Shdr Flex w/manual stab of Scapula Side right Reps/Minutes 3' Shoulder isoms Sitting Exercise Name Shdr flex, ext, AB, ER, IR Side bilateral Reps/Minutes x 1 each Comments MMT taken Shoulder AROM Sitting Exercise Name Shdr flex, ext, AB, ER, IR, reaching behind head and back Side bilateral Reps/Minutes x 2-3 each on R for stretch Comments ROM taken Self-Care/Home Management Treatment Education Other Education Discussed results of recheck for progress note, pt goals, and new plan of care (POC); pt agreeable to goals and POC. Activities Self-Care/Home Management Activities I/S and discussed with pt: self fci program this week to focus on neck stretches, moving R arm with focus on proper scapular mvmt and STM to Supraspinatus in scapular fossa, f/b R shdr ROM with proper scapular mvmt. PT-OP-R Modalities Start: 12/21/23 17:44 Freq: Status: Active Protocol: Document 01/30/24 10:38 NBM (Rec: 01/30/24 11:20 NBM [id number]) Ultrasound Therapy Treatment R shoulder jt Patient Position Supine Coupling Medium Ultrasound Gel Applicator Size (cm2) 2 Frequency Setting (mHz) 3 Mode Setting Pulsed Duty Cycle 50% Intensity Setting (w/cm2) 1.0 PT-OP-T Assessment and Plan Start: 12/21/23 17:44 Freq: Status: Active Protocol: Document 02/22/24 09:50 LRN (Rec: 02/22/24 10:55 LRN [id number]) Physical Therapy Assessment Goals Three Impairment R shoulder pain interferring with sleep and recreational biking Short Term Goal (STG) Pt will modify his sleeping positions to be able to sleep at night without pain. 01/02/24: Pt sidesleeps on soft mattress and is encouraged in sidesleeping on L w/ pillow support in front for R UE support - HO provided. 01/05/24: Pt reports s/l sleeping attempted w/ UE pillow support but it moves throughout the night. Reviewed supine bed positioning as well. 01/19/24: Wakes with R shoulder soreness. 01/30/24: Pt reports he no longer wakes up due to R shoulder pain. The last two mornings he has woken up without R shoulder soreness. STG Duration (01/30/24: MET GOAL) [employer] Goal (LTG) Pt will be able to bike outdoors for short rides without pain. 01/05/23: Pt reports riding bike up to [place] after 01/02 PT visit - no pain but R shoulder tightness after mountain biking a couple of times. Mountain bike race this weekend. 01/19/24: When arms are lower her shoulders doesn't bother him. He can [place] without shoulder pain. 02/06/24: Pt went road biking last weekend and wore his wrist brace just in case - reports no pain. LTG Duration (01/19/24: MET GOAL) Two Impairment R shoulder pain with saw and hammer motions interfering w/ home function Impairment Initial pain rated 4/10. Short Term Goal (STG) Pt able to reach overhead with minimal to no pain with R arm to decrease pain at work. 02/22/24: Pain rated 2/10 lifting at work. STG Duration 4 wks-03/22/24 progressing [employer] Goal (LTG) Able to do saw motion or hammer nail with minimal to no pain (currently pain is 4-5/ 10). Sleeping w/o pain. Bike without pain. 01/30/24 - pt used hammer motion to break stick and stopped due to R shoulder pain . Hasn't tried sawing motion recently. 02/06/24 - no change. 02/22/24: No pain with sawing motion over the weekend. LTG Duration 02/22/24: MET GOAL One Impairment Pt lacks appropriate self care HEP Short Term Goal (STG) Pt will be educated in proper posturing (sit/stand), and in best nighttime sleeping positions. 12/28/23: Educated pt in sit/ stand posture. 01/02/24: Edu to pt re: bed positioning in sidelying, cues for UT overactivation, and bed positioning HO given encouraging pt to use pillow support for R UE support. 01/05/24: use of pillow support for R UE in s/l but pillow moves and pt doesn't notice a difference. Edu to pt about supine sleep positioning options as well w/ review of previous sleep positioning HO. STG Duration 01/05/24: MET GOAL [employer] Goal (LTG) Pt will be educate in a self care HEP of R shoulder/neck/ scapular/thoracic strengthening and thoracic mobility and L neck/shoulder relaxation stretch. 12/28/23: HEP: scap stabilizers & I/S in R shoulder ROM ex. 01/02/24: HEP: resisted doris ext/row/abd and harish ER - HO given. 01/17/24: HEP: supine pec stretch and supine chin tucks - HO given. 01/25/24: HEP: Scalene stretches in sup 01/30/24: HEP: Cervical stretches (UT, LS, Scalenes) in Sitting - HO declined. 02/06/24: HEP: Reviewed scalene stretches in supine from 01/25/24. LTG Duration 4 wks-03/22/24 progressed Assessment Summary Assessment Pt is a 63 yo male being treated for weak R scap stabilizers & today impingement of R supraspinatus with shoulder flexion due to kyphosis/SHR dys. Pt needs relaxation of R supraspinatus and proper SHR and continue postural corrections of kyphosis and fwd head; therefore will benefit from further PT to assist with these corrections and to achieve the above stated goals . Physical Therapy Plan Frequency and Duration Frequency of Treatment 1x/Week Duration of treatment (weeks) 4 Plan of Care Start Date 02/22/24 Plan of Care End Date 03/22/24 Next Visit Focus/Plan Next Note Type Treatment Note Next Visit Plan Discuss [facility] more treatments. POC: 1x/wk (due to him coming from [place]). Focus on HEP supriaspinatus relaxation and postural ex's/R scapular stabilizers/RC. Modality if needed: Ultrasound to R supraspinatus f/b stretch and shdr flex/OH press and scap stab strengthening . Next: try K-tape to decrease tension on R supratspinatus, ? R scap to facilitated proper scap mvmt. HEP to Progress Scap stab, RC strengthening with focus on proper posture to avoid impingement. Manual: MWM for: painfree R shoulder AROM for hammering motions, and lifting for work. Exer: R neck/shoulder/ thoracic strengthening and relaxation of L neck/shoulder ms.
--- NOTE | 2024-02-26 16:52 | PT.OTN ---
Current Diagnoses Other chronic pain (02/26/24) Pain in right shoulder (02/26/24) Abnormal posture (02/26/24) Physical Therapy Treatment Note PT-OP-A Visit Information Start: 12/21/23 17:44 Freq: Status: Active Protocol: Document 02/26/24 09:52 LRN (Rec: 02/26/24 11:24 LRN [id number]) Out-Patient Physical Therapy Visit Information Visit Information Visit Type Treatment Note Visit Start Time 10:38 Visit Stop Time 11:23 Visit Number 11/03 Evaluation Information Evaluation Date 12/26/23 Precautions Precautions Fx'd L clavicle-4 yrs ago. PT-OP-B Current Condition Start: 12/21/23 17:44 Freq: Status: Active Protocol: Document 12/26/23 09:47 LRN (Rec: 12/26/23 11:22 LRN [id number]) Current Condition History of Current Condition Onset Date 11/2023 Current Complaints Can't lift R arm past shoulder height at work. History of Current Condition Insidious onset of R shoulder pain a couple years ago. Possibly from over use while recovering from L clavical fracture or too much biking ( 2000 miles/yr). Pt referred to physical therapy after being seen by his doctor during a physical due to R shoulder weakness. Then walking on the beach in Nov 2023 he tripped backing up over a log and valentin the R shoulder (no fall or stabilization with the R arn needed) and wasn't able to lift the arm higher than shoulder height afterward due to the pain. Prior to the stumble (4 months ago), he couldn't lift a 2# wgt past shoulder height. Prior Treatments and Tests In [place], Cortisone injection ~February 2022 and PT with resolution of pain. 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 Developmental History Developmental History PT after L clavicle fracture in [facility] 4 yrs ago. Has residual pain in L shoulder. 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 Moved to [place] last year. Treatment Goals Patient/Caregiver Goals Pt goal: PT before having cortisone injection if needed. Able to reach overhead with minimal to no pain with R arm Able to do saw motion or hammer nail with minimal to no pain (currently pain is 4-5/ 10). Sleeping w/o pain. Bike without pain. 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 Therapy/Recovery Plans to retire in a few months. PT-OP-C Subjective Start: 12/21/23 17:44 Freq: Status: Active Protocol: Document 02/26/24 09:52 LRN (Rec: 02/26/24 11:24 LRN [id number]) OP-PT Subjective Patient Comments Patient Comments States he is better, hasn't really noticed R shoulder pain lifting overhead at work. Yesterday doing gardening, and felt his shoulder with swing arm motion. Sawing the weekend before felt the R shoulder, but not pain. PT-OP-J Posture/Palpation/Skin Start: 12/21/23 17:44 Freq: Status: Active Protocol: Document 12/26/23 09:47 LRN (Rec: 12/26/23 11:22 LRN [id number]) Posture Evaluation Position Standing Head/C-Spine Posture Forward Head T-Spine Posture Increased Kyphosis L-Spine Posture Increased Lordosis Shoulder Posture (L) Rounded,(R) Rounded,(L) Elevated Scapula Posture (R) Retracted,(R) Rotated Up Arm Posture (L) Neutral,(R) Neutral Palpation Assessment Location R shoulder Palpation Location Shoulder joint and scapular muscles Palpation Details No tenderness. Atrophy of R shoulder/neck ms. PT-OP-K Range of Motion Start: 12/21/23 17:44 Freq: Status: Active Protocol: Document 02/22/24 09:50 LRN (Rec: 02/22/24 10:55 LRN [id number]) Shoulder Goniometric Range of Motion Shoulder Right Active Shoulder ROM WFL No Testing Position Sitting Flexion 165 Extension 70 Abduction 172 External Rotation at 0 degrees Abduction 90 Internal Rotation Behind Back (text) T10 Left Active Testing Position Sitting Flexion 157 Extension 70 Abduction 172 External Rotation at 0 degrees Abduction 90 Internal Rotation Behind Back (text) T11 PT-OP-L Special Tests Start: 12/21/23 17:44 Freq: Status: Active Protocol: Document 12/26/23 09:47 LRN (Rec: 12/26/23 11:22 LRN [id number]) Special Tests Cervical Spine Special Tests Foraminal Compression Test Results - Spurling's Test Test Results - bilaterally Shoulder Special Tests Biceps Load II Test Test Results - R shoulder Belly Press Test Results - R shoulder Empty Can Test Results - R shoulder Elevation Impingement Test Results + R shoulder Comments Pain IR/Horizontal ADD Impingement Test Results - R shoulder PT-OP-M Strength Start: 12/21/23 17:44 Freq: Status: Active Protocol: Document 02/22/24 09:50 LRN (Rec: 02/22/24 10:57 LRN [id number]) Shoulder Strength Shoulder Manual Muscle Testing Right Flexion 4+ Good+ Comments Strength is 5/5 except as indicated above. No c/o pain with MMT except with flexion. Left Comments Strength is 5/5 PT-OP-Q Treatments Start: 12/21/23 17:44 Freq: Status: Active Protocol: Document 02/26/24 09:52 LRN (Rec: 02/26/24 11:24 LRN [id number]) Cardio Equipment Upper Body Ergometer (UBE) Duration (Minutes) 8 RPM 60 Seat Position 9 Height 5.5 Other 3'fwd/bkwd, cued for proper head/neck posture & scap setting. Therapeutic Exercises Supine Exercises Lat Pull down Supine Exercise Name Lat Pull down Equipment Used L5, 3#, wand Reps/Minutes 13' Comments discomfort at top of R shoulder pain reported Pec stretch Supine Exercise Name Pec and shoulder ER stretch Side bilateral Reps/Minutes 3' Standing Exercises Resisted C/S retraction Standing Exercise Name C/S kirk ext/retraction/head to ceiling Reps/Minutes 12x Comments Cued to not stretch TBand hard . Lat pull down Standing Exercise Name Lat pull down for scap retract /depression Side bilateral Resistance Pt feels stiff on L side. Equipment Used L4 TB Reps/Minutes 15x 2 Comments Phy cue for R scap retract/ depression, eccentric control. Self-Care/Home Management Treatment Education Patient Education Home Exercise Program Activities Self-Care/Home Management Activities Issued & reviewed HEP: Resisted C. retraction/kirk, resisted lat pulls w/TB, Thoracic Ext hand wgt resisted . PT-OP-R Modalities Start: 12/21/23 17:44 Freq: Status: Active Protocol: Document 01/30/24 10:38 NBM (Rec: 01/30/24 11:20 NBM [id number]) Ultrasound Therapy Treatment R shoulder jt Patient Position Supine Coupling Medium Ultrasound Gel Applicator Size (cm2) 2 Frequency Setting (mHz) 3 Mode Setting Pulsed Duty Cycle 50% Intensity Setting (w/cm2) 1.0 PT-OP-T Assessment and Plan Start: 12/21/23 17:44 Freq: Status: Active Protocol: Document 02/26/24 09:52 LRN (Rec: 02/26/24 11:24 LRN [id number]) Physical Therapy Assessment Goals Three Impairment R shoulder pain interferring with sleep and recreational biking Short Term Goal (STG) Pt will modify his sleeping positions to be able to sleep at night without pain. 01/02/24: Pt sidesleeps on soft mattress and is encouraged in sidesleeping on L w/ pillow support in front for R UE support - HO provided. 01/05/24: Pt reports s/l sleeping attempted w/ UE pillow support but it moves throughout the night. Reviewed supine bed positioning as well. 01/19/24: Wakes with R shoulder soreness. 01/30/24: Pt reports he no longer wakes up due to R shoulder pain. The last two mornings he has woken up without R shoulder soreness. 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 01/05/23: Pt reports riding bike up to [place] after 01/02 PT visit - no pain but R shoulder tightness after mountain biking a couple of times. Mountain bike race this weekend. 01/19/24: When arms are lower her shoulders doesn't bother him. He can [place]ike without shoulder pain. 02/06/24: Pt went road biking last weekend and wore his wrist brace just in case - reports no pain. LTG Duration (01/19/24: MET GOAL) Two Impairment R shoulder pain with saw and hammer motions interfering w/ home function Impairment Initial pain rated 4/10. Short Term Goal (STG) Pt able to reach overhead with minimal to no pain with R arm to decrease pain at work. 02/22/24: Pain rated 2/10 lifting at work. 02/26/24: Pt reports he hasn 't really noticed R shoulder pain lifting overhead at work. STG Duration 4 wks-03/22/24 progressing (need to assess lift tolerance) Half-Way Goal (LTG) Able to do saw motion or hammer nail with minimal to no pain (currently pain is 4-5/ 10). Sleeping w/o pain. Bike without pain. 01/30/24 - pt used hammer motion to break stick and stopped due to R shoulder pain . Hasn't tried sawing motion recently. 02/06/24 - no change. 02/22/24: No pain with sawing motion over the weekend. LTG Duration 02/22/24: MET GOAL One Impairment Pt lacks appropriate self care HEP Short Term Goal (STG) Pt will be educated in proper posturing (sit/stand), and in best nighttime sleeping positions. 12/28/23: Educated pt in sit/ stand posture. 01/02/24: Edu to pt re: bed positioning in sidelying, cues for UT overactivation, and bed positioning HO given encouraging pt to use pillow support for R UE support. 01/05/24: use of pillow support for R UE in s/l but pillow moves and pt doesn't notice a difference. Edu to pt about supine sleep positioning options as well w/ review of previous sleep positioning HO. STG Duration 01/05/24: MET GOAL Drag Seiner Goal (LTG) Pt will be educate in a self care HEP of R shoulder/neck/ scapular/thoracic strengthening and thoracic mobility and L neck/shoulder relaxation stretch. 12/28/23: HEP: scap stabilizers & I/S in R shoulder ROM ex. 01/02/24: HEP: resisted shoulder ext/row/abd and harish ER - HO given. 01/17/24: HEP: supine pec stretch and supine chin tucks - HO given. 01/25/24: HEP: Scalene stretches in sup 01/30/24: HEP: Cervical stretches (UT, LS, Scalenes) in Sitting - HO declined. 02/06/24: HEP: Reviewed scalene stretches in supine from 01/25/24. 02/26/24: HEP: C/S retract ( chin tuck) w/TB; Semi-squat w/ shdr flex & ext w/wgt; lat pulld down w/TB. LTG Duration 4 wks-03/22/24 progressed . Assessment Summary Assessment Pt is a 63 yo male being treated for weak R scap stabilizers & impingement of R supraspinatus with shoulder flexion due to kyphosis/SHR dys. Pt is not noticing pain at work with lifting overhead , although limited in wgt lifting. Pt is concerned of being able to ex without pain onset; therefore will discuss next visit. Physical Therapy Plan Frequency and Duration Frequency of Treatment 1x/Week Duration of treatment (weeks) 4 Plan of Care Start Date 02/22/24 Plan of Care End Date 03/22/24 Next Visit Focus/Plan Next Note Type Treatment Note Next Visit Plan Next: Discuss/review scapular positioning/scap stab during other recreational ex's & home ex's of Scap stab (ISSUE: gr TB for home lat pull downs). POC: DC in 2 visits. Focus on HEP supraspinatus relaxation and postural ex's/R scapular stabilizers/RC. Modality if needed: Ultrasound to R supraspinatus f/b stretch and shdr flex/OH press and scap stab strengthening. Check OH lifting wgt tolerance limit. HEP to Progress home ex's of Scap stab, try ECC RC strengthening with focus on proper posture to avoid impingement. If needed, try K-tape to decrease tension on R supratspinatus, ?R scap to facilitated proper scap mvmt. MWM for: painfree R shoulder AROM for hammering motions, and lifting for work. POC: R neck/shoulder/thoracic strengthening and relaxation of L neck/shoulder ms.
--- NOTE | 2024-03-19 16:15 | PT.OTN ---
Current Diagnoses Other chronic pain (03/19/24) Pain in right shoulder (03/19/24) Abnormal posture (03/19/24) Physical Therapy Treatment Note PT-OP-A Visit Information Start: 12/21/23 17:44 Freq: Status: Active Protocol: Document 03/19/24 09:49 LRN (Rec: 03/19/24 10:34 LRN [id number]) Out-Patient Physical Therapy Visit Information Visit Information Visit Type Treatment Note Visit Start Time 09:49 Visit Stop Time 10:29 Visit Number Evaluation Information Evaluation Date 12/26/23 Precautions Precautions Fx'd L clavicle-4 yrs ago. PT-OP-B Current Condition Start: 12/21/23 17:44 Freq: Status: Active Protocol: Document 12/26/23 09:47 LRN (Rec: 12/26/23 11:22 LRN [id number]) Current Condition History of Current Condition Onset Date 11/2023 Current Complaints Can't lift R arm past shoulder height at work. History of Current Condition Insidious onset of R shoulder pain a couple years ago. Possibly from over use while recovering from L clavical fracture or too much biking ( 2000 miles/yr). Pt referred to physical therapy after being seen by his doctor during a physical due to R shoulder weakness. Then walking on the beach in Nov 2023 he tripped backing up over a log and valentin the R shoulder (no fall or stabilization with the R arn needed) and wasn't able to lift the arm higher than shoulder height afterward due to the pain. Prior to the stumble (4 months ago), he couldn't lift a 2# wgt past shoulder height. Prior Treatments and Tests In [place], Cortisone injection ~February 2022 and PT with resolution of pain. 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 Developmental History Developmental History PT after L clavicle fracture in [facility] 4 yrs ago. Has residual pain in L shoulder. 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 Moved to [place] last year. Treatment Goals Patient/Caregiver Goals Pt goal: PT before having cortisone injection if needed. Able to reach overhead with minimal to no pain with R arm Able to do saw motion or hammer nail with minimal to no pain (currently pain is 4-5/ 10). Sleeping w/o pain. Bike without pain. 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 Therapy/Recovery Plans to retire in a few months. PT-OP-C Subjective Start: 12/21/23 17:44 Freq: Status: Active Protocol: Document 03/19/24 09:49 LRN (Rec: 03/19/24 10:34 LRN [id number]) OP-PT Subjective Patient Comments Patient Comments States 1.5 wks ago his R shoulder was super sore and wasn't able to lift things with arm straight ahead for 2- 3 days, but now back to prior level. States mostly he is stiff and sore. PT-OP-J Posture/Palpation/Skin Start: 12/21/23 17:44 Freq: Status: Active Protocol: Document 12/26/23 09:47 LRN (Rec: 12/26/23 11:22 LRN [id number]) Posture Evaluation Position Standing Head/C-Spine Posture Forward Head T-Spine Posture Increased Kyphosis L-Spine Posture Increased Lordosis Shoulder Posture (L) Rounded,(R) Rounded,(L) Elevated Scapula Posture (R) Retracted,(R) Rotated Up Arm Posture (L) Neutral,(R) Neutral Palpation Assessment Location R shoulder Palpation Location Shoulder joint and scapular muscles Palpation Details No tenderness. Atrophy of R shoulder/neck ms. PT-OP-K Range of Motion Start: 12/21/23 17:44 Freq: Status: Active Protocol: Document 02/22/24 09:50 LRN (Rec: 02/22/24 10:55 LRN [id number]) Shoulder Goniometric Range of Motion Shoulder Right Active Shoulder ROM WFL No Testing Position Sitting Flexion 165 Extension 70 Abduction 172 External Rotation at 0 degrees Abduction 90 Internal Rotation Behind Back (text) T10 Left Active Testing Position Sitting Flexion 157 Extension 70 Abduction 172 External Rotation at 0 degrees Abduction 90 Internal Rotation Behind Back (text) T11 PT-OP-L Special Tests Start: 12/21/23 17:44 Freq: Status: Active Protocol: Document 12/26/23 09:47 LRN (Rec: 12/26/23 11:22 LRN [id number]) Special Tests Cervical Spine Special Tests Foraminal Compression Test Results - Spurling's Test Test Results - bilaterally Shoulder Special Tests Biceps Load II Test Test Results - R shoulder Belly Press Test Results - R shoulder Empty Can Test Results - R shoulder Elevation Impingement Test Results + R shoulder Comments Pain IR/Horizontal ADD Impingement Test Results - R shoulder PT-OP-M Strength Start: 12/21/23 17:44 Freq: Status: Active Protocol: Document 02/22/24 09:50 LRN (Rec: 02/22/24 10:57 LRN [id number]) Shoulder Strength Shoulder Manual Muscle Testing Right Flexion 4+ Good+ Comments Strength is 5/5 except as indicated above. No c/o pain with MMT except with flexion. Left Comments Strength is 5/5 PT-OP-Q Treatments Start: 12/21/23 17:44 Freq: Status: Active Protocol: Document 03/19/24 09:49 LRN (Rec: 03/19/24 10:34 LRN [id number]) Therapeutic Exercises Supine Exercises Lat Pull down Supine Exercise Name Lat Pull down Equipment Used L5, 3#, wand Reps/Minutes 8' Standing Exercises Shoulder stretching Standing Exercise Name Flex agst wall, hands behind head, hands behind back. Side bilateral Reps/Minutes 8' Comments Cued to retract/depress R scap to decr shoulder pain Therapeutic Activity Therapeutic Activity Hammering training Name Hammering training for GHJ stab and Scapular Stab Reps/Minutes 6' Comments Cuing for scapular setting Lifting training Name Lifting in box lbs: 5, 8, 10 Reps/Minutes 8' Comments Cuing for scapular setting Neuro Re-Education Treatment Movement Re-Education Movement Re-education Activities Ashwin shoulder movements ( reaching in all directionis, moving object mvmt, sawing) with Body blade. PT-OP-R Modalities Start: 12/21/23 17:44 Freq: Status: Active Protocol: Document 01/30/24 10:38 NBM (Rec: 01/30/24 11:20 NBM [id number]) Ultrasound Therapy Treatment R shoulder jt Patient Position Supine Coupling Medium Ultrasound Gel Applicator Size (cm2) 2 Frequency Setting (mHz) 3 Mode Setting Pulsed Duty Cycle 50% Intensity Setting (w/cm2) 1.0 PT-OP-T Assessment and Plan Start: 12/21/23 17:44 Freq: Status: Active Protocol: Document 03/19/24 09:49 LRN (Rec: 03/19/24 10:34 LRN [id number]) Physical Therapy Assessment Goals Three Impairment R shoulder pain interferring with sleep and recreational biking Short Term Goal (STG) Pt will modify his sleeping positions to be able to sleep at night without pain. 01/02/24: Pt sidesleeps on soft mattress and is encouraged in sidesleeping on L w/ pillow support in front for R UE support - HO provided. 01/05/24: Pt reports s/l sleeping attempted w/ UE pillow support but it moves throughout the night. Reviewed supine bed positioning as well. 01/19/24: Wakes with R shoulder soreness. 01/30/24: Pt reports he no longer wakes up due to R shoulder pain. The last two mornings he has woken up without R shoulder soreness. STG Duration (01/30/24: MET GOAL) Skilled Nursing Goal (LTG) Pt will be able to bike outdoors for short rides without pain. 01/05/23: Pt reports riding bike up to [place] after 01/02 PT visit - no pain but R shoulder tightness after mountain biking a couple of times. Mountain bike race this weekend. 01/19/24: When arms are lower her shoulders doesn't bother him. He can [place] without shoulder pain. 02/06/24: Pt went road biking last weekend and wore his wrist brace just in case - reports no pain. LTG Duration (01/19/24: MET GOAL) Two Impairment R shoulder pain with saw and hammer motions interfering w/ home function Impairment Initial pain rated 4/10. Short Term Goal (STG) Pt able to reach overhead with minimal to no pain with R arm to decrease pain at work. 02/22/24: Pain rated 2/10 lifting at work. 02/26/24: Pt reports he hasn 't really noticed R shoulder pain lifting overhead at work. 03/19/24: No pain reaching overhead and no pain lifting 10# overhead. STG Duration (03/19/24: MET GOAL) Skilled Nursing Goal (LTG) Able to do saw motion or hammer nail with minimal to no pain (currently pain is 4-5/ 10). Sleeping w/o pain. Bike without pain. 01/30/24 - pt used hammer motion to break stick and stopped due to R shoulder pain . Hasn't tried sawing motion recently. 02/06/24 - no change. 02/22/24: No pain with sawing motion over the weekend. 03/19/24: Pt able to hit pillow and treatment carpeted floor with hammer w/o pain. Pt to try at home hammering. LTG Duration (02/22/24: MET GOAL) One Impairment Pt lacks appropriate self care HEP Short Term Goal (STG) Pt will be educated in proper posturing (sit/stand), and in best nighttime sleeping positions. 12/28/23: Educated pt in sit/ stand posture. 01/02/24: Edu to pt re: bed positioning in sidelying, cues for UT overactivation, and bed positioning HO given encouraging pt to use pillow support for R UE support. 01/05/24: use of pillow support for R UE in s/l but pillow moves and pt doesn't notice a difference. Edu to pt about supine sleep positioning options as well w/ review of previous sleep positioning HO. 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 12/28/23: HEP: scap stabilizers & I/S in R shoulder ROM ex. 01/02/24: HEP: resisted shoulder ext/row/abd and ashwin ER - HO given. 01/17/24: HEP: supine pec stretch and supine chin tucks - HO given. 01/25/24: HEP: Scalene stretches in sup 01/30/24: HEP: Cervical stretches (UT, LS, Scalenes) in Sitting - HO declined. 02/06/24: HEP: Reviewed scalene stretches in supine from 01/25/24. 02/26/24: HEP: C/S retract ( chin tuck) w/TB; Semi-squat w/ shdr flex & ext w/wgt; lat pulld down w/TB. LTG Duration 4 wks-03/22/24 progressed . Assessment Summary Assessment Pt is a 63 yo male being treated for weak R scap stabilizers & impingement of R supraspinatus with shoulder flexion due to kyphosis/SHR dys. Today pt was able to lift overhead a carton of 10# and with hammering on a pillow and carpeted floor had no c/o R shoulder pain. Pt has reported sore R shoulder with hammering although has not tried for awhile. Pt needs to attempt at home. Physical Therapy Plan Frequency and Duration Frequency of Treatment 1x/Week Duration of treatment (weeks) 4 Plan of Care Start Date 02/22/24 Plan of Care End Date 03/22/24 Next Visit Focus/Plan Next Note Type Treatment Note Next Visit Plan DC next visit. Focus on decreasing R shoulder pain with hammering. Home ex's of R Scap stab (ISSUE: gr TB for home lat pull downs). HEP: Try ECC RC strengthening with focus on proper posture to avoid impingement. ?HEP supraspinatus relaxation, R scapular stabilizers/RC, OH press. MWM for: painfree R shoulder AROM for hammering motions, and lifting for work. POC: R neck/shoulder/thoracic strengthening and relaxation of L neck/shoulder ms.
--- NOTE | 2024-03-26 16:03 | PT.OTN ---
Current Diagnoses Other chronic pain (03/26/24) Pain in right shoulder (03/26/24) Abnormal posture (03/26/24) Physical Therapy Treatment Note PT-OP-A Visit Information Start: 12/21/23 17:44 Freq: Status: Active Protocol: Document 03/26/24 10:40 LRN (Rec: 03/26/24 11:18 LRN [id number]) Out-Patient Physical Therapy Visit Information Visit Information Visit Type Treatment Note Visit Start Time 10:40 Visit Stop Time 11:19 Visit Number Evaluation Information Evaluation Date 12/26/23 Precautions Precautions Fx'd L clavicle-4 yrs ago. PT-OP-B Current Condition Start: 12/21/23 17:44 Freq: Status: Active Protocol: Document 12/26/23 09:47 LRN (Rec: 12/26/23 11:22 LRN [id number]) Current Condition History of Current Condition Onset Date 11/2023 Current Complaints Can't lift R arm past shoulder height at work. History of Current Condition Insidious onset of R shoulder pain a couple years ago. Possibly from over use while recovering from L clavical fracture or too much biking ( 2000 miles/yr). Pt referred to physical therapy after being seen by his doctor during a physical due to R shoulder weakness. Then walking [place] the beach in Nov 2023 he tripped backing up over a log and valentin the R shoulder (no fall or stabilization with the R arn needed) and wasn't able to lift the arm higher than shoulder height afterward due to the pain. Prior to the stumble (4 months ago), he couldn't lift a 2# wgt past shoulder height. Prior Treatments and Tests In [place], Cortisone injection ~February 2022 and PT with resolution of pain. 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 Developmental History Developmental History PT after L clavicle fracture in [facility] 4 yrs ago. Has residual pain in L shoulder. 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 Treatment Goals Patient/Caregiver Goals Pt goal: PT before having cortisone injection if needed. Able to reach overhead with minimal to no pain with R arm Able to do saw motion or hammer nail with minimal to no pain (currently pain is 4-5/ 10). Sleeping w/o pain. Bike without pain. 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 Therapy/Recovery Plans to retire in a few months. PT-OP-C Subjective Start: 12/21/23 17:44 Freq: Status: Active Protocol: Document 03/26/24 10:40 LRN (Rec: 03/26/24 11:18 LRN [id number]) OP-PT Subjective Patient Comments Patient Comments Mountain biking and racing over the weekend. K-taped both shoulders so the R shoulder did well. Mostly no pain in R shoulder unless doing too much at the right angle. States he can live with the pain and can do anything he wants to do. Can do the motiong of air hammering. Retiring next month. Patient Questionnaires Quick Dash- Upper Extremity Quick Dash UE Score 6.81 Quick Dash UE Impairment 1 to 19% Impaired (Score 1-19) PT-OP-E Functional Tests Start: 12/21/23 17:44 Freq: Status: Active Protocol: Document 03/26/24 10:40 LRN (Rec: 03/26/24 15:56 LRN [id number]) Functional Tests Apley's Scratch Test Action 1- Left 1 below spine of scapula & 1 lateral of spine Action 1- Right 1 below spine of scapula & 1 lateral of spine Action 2- Left T2 Action 2- Right T2 Action 3- Left T10 Action 3- Right T10 PT-OP-J Posture/Palpation/Skin Start: 12/21/23 17:44 Freq: Status: Active Protocol: Document 12/26/23 09:47 LRN (Rec: 12/26/23 11:22 LRN [id number]) Posture Evaluation Position Standing Head/C-Spine Posture Forward Head T-Spine Posture Increased Kyphosis L-Spine Posture Increased Lordosis Shoulder Posture (L) Rounded,(R) Rounded,(L) Elevated Scapula Posture (R) Retracted,(R) Rotated Up Arm Posture (L) Neutral,(R) Neutral Palpation Assessment Location R shoulder Palpation Location Shoulder joint and scapular muscles Palpation Details No tenderness. Atrophy of R shoulder/neck ms. PT-OP-K Range of Motion Start: 12/21/23 17:44 Freq: Status: Active Protocol: Document 03/26/24 10:40 LRN (Rec: 03/26/24 15:55 LRN [id number]) Shoulder Goniometric Range of Motion Shoulder Right Active Shoulder ROM WFL Yes Testing Position Sitting Flexion 165 Abduction 180 External Rotation at 0 degrees Abduction 80 Internal Rotation Behind Back (text) T10 Left Active Shoulder ROM WFL Yes Testing Position Sitting Flexion 160 Abduction 180 External Rotation at 0 degrees Abduction 80 Internal Rotation Behind Back (text) T10 PT-OP-L Special Tests Start: 12/21/23 17:44 Freq: Status: Active Protocol: Document 12/26/23 09:47 LRN (Rec: 12/26/23 11:22 LRN [id number]) Special Tests Cervical Spine Special Tests Foraminal Compression Test Results - Spurling's Test Test Results - bilaterally Shoulder Special Tests Biceps Load II Test Test Results - R shoulder Belly Press Test Results - R shoulder Empty Can Test Results - R shoulder Elevation Impingement Test Results + R shoulder Comments Pain IR/Horizontal ADD Impingement Test Results - R shoulder PT-OP-M Strength Start: 12/21/23 17:44 Freq: Status: Active Protocol: Document 02/22/24 09:50 LRN (Rec: 02/22/24 10:57 LRN [id number]) Shoulder Strength Shoulder Manual Muscle Testing Right Flexion 4+ Good+ Comments Strength is 5/5 except as indicated above. No c/o pain with MMT except with flexion. Left Comments Strength is 5/5 PT-OP-Q Treatments Start: 12/21/23 17:44 Freq: Status: Active Protocol: Document 03/26/24 10:40 LRN (Rec: 03/26/24 11:18 LRN [id number]) Cardio Equipment Upper Body Ergometer (UBE) Duration (Minutes) 8 RPM 60 Seat Position 9 Height 5.5 Other 4' fwd/bkwd Therapeutic Exercises Supine Exercises Lat Pull down Supine Exercise Name Lat Pull down Equipment Used L3 & L5 TB, & 4#, wand Reps/Minutes 8' Pec stretch Supine Exercise Name Pec and shoulder ER stretch Side bilateral Reps/Minutes 3' Shoulder flex stretch Supine Exercise Name Flex with both arms back. Side right Resistance Arm in neutral/AB 160 deg's Equipment Used Cane Reps/Minutes 7' Comments Pt to move slow to retrain scap stabs with mvmt into shoulder flex;no pain Sitting Exercises Shoulder AROM Sitting Exercise Name Shoulder AROM and functional reach stretch Side bilateral Reps/Minutes 5' Comments ROM and functional mobility taken Standing Exercises ECC RC strengthening Standing Exercise Name Shoulder at 50 deg's AB supported and 90 deg's AB unsupported. Side right Reps/Minutes 6' Comments Difficulty with unsupported position Scap retract/depression Standing Exercise Name Reviewed for importance of correct posturing with R UE use. Side right PT-OP-R Modalities Start: 12/21/23 17:44 Freq: Status: Active Protocol: Document 01/30/24 10:38 NBM (Rec: 01/30/24 11:20 NBM [id number]) Ultrasound Therapy Treatment R shoulder jt Patient Position Supine Coupling Medium Ultrasound Gel Applicator Size (cm2) 2 Frequency Setting (mHz) 3 Mode Setting Pulsed Duty Cycle 50% Intensity Setting (w/cm2) 1.0 PT-OP-T Assessment and Plan Start: 12/21/23 17:44 Freq: Status: Active Protocol: Document 03/26/24 10:40 LRN (Rec: 03/26/24 11:18 LRN [id number]) Physical Therapy Assessment Goals Three Impairment R shoulder pain interferring with sleep and recreational biking Short Term Goal (STG) Pt will modify his sleeping positions to be able to sleep at night without pain. 01/02/24: Pt sidesleeps on soft mattress and is encouraged in sidesleeping on L w/ pillow support in front for R UE support - HO provided. 01/05/24: Pt reports s/l sleeping attempted w/ UE pillow support but it moves throughout the night. Reviewed supine bed positioning as well. 01/19/24: Wakes with R shoulder soreness. 01/30/24: Pt reports he no longer wakes up due to R shoulder pain. The last two mornings he has woken up without R shoulder soreness. 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 01/05/23: Pt reports riding bike up to [place] after 01/02 PT visit - no pain but R shoulder tightness after mountain biking a couple of times. Mountain bike race this weekend. 01/19/24: When arms are lower her shoulders doesn't bother him. He can [place] without shoulder pain. 02/06/24: Pt went road biking last weekend and wore his wrist brace just in case - reports no pain. LTG Duration (01/19/24: MET GOAL) Two Impairment R shoulder pain with saw and hammer motions interfering w/ home function Impairment Initial pain rated 4/10. Short Term Goal (STG) Pt able to reach overhead with minimal to no pain with R arm to decrease pain at work. 02/22/24: Pain rated 2/10 lifting at work. 02/26/24: Pt reports he hasn 't really noticed R shoulder pain lifting overhead at work. 03/19/24: No pain reaching overhead and no pain lifting 10# overhead. 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 Sleeping w/o pain. Bike without pain. 01/30/24 - pt used hammer motion to break stick and stopped due to R shoulder pain . Hasn't tried sawing motion recently. 02/06/24 - no change. 02/22/24: No pain with sawing motion over the weekend. 03/19/24: Pt able to hit pillow and treatment carpeted floor with hammer w/o pain. Pt to try at home hammering. LTG Duration (02/22/24: MET GOAL) One Impairment Pt lacks appropriate self care HEP Short Term Goal (STG) Pt will be educated in proper posturing (sit/stand), and in best nighttime sleeping positions. 12/28/23: Educated pt in sit/ stand posture. 01/02/24: Edu to pt re: bed positioning in sidelying, cues for UT overactivation, and bed positioning HO given encouraging pt to use pillow support for R UE support. 01/05/24: use of pillow support for R UE in s/l but pillow moves and pt doesn't notice a difference. Edu to pt about supine sleep positioning options as well w/ review of previous sleep positioning HO. 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 12/28/23: HEP: scap stabilizers & I/S in R shoulder ROM ex. 01/02/24: HEP: resisted shoulder ext/row/abd and harish ER - HO given. 01/17/24: HEP: supine pec stretch and supine chin tucks - HO given. 01/25/24: HEP: Scalene stretches in sup 01/30/24: HEP: Cervical stretches (UT, LS, Scalenes) in Sitting - HO declined. 02/06/24: HEP: Reviewed scalene stretches in supine from 01/25/24. 02/26/24: HEP: C/S retract ( chin tuck) w/TB; Semi-squat w/ shdr flex & ext w/wgt; lat pulld down w/TB. 03/26/24: Reviewed most important HEP's to continue and for postural training of R shoulder/scapula LTG Duration 4 wks-03/22/24 (03/26/24: MET GOAL) Assessment Summary Assessment Pt is a 63 yo male was being treated for weak R scap stabilizers & impingement and impingement syndrome due to kyphosis/SHR dys. Today pt reports no soreness of R shoulder with hammering motion , but admits he did not do actually hammering. He has 2 therabands for exercise already and choose not to take another one home for his home exercises. The pt is able to perform ex's reviewed without pain. He has RC weakness with eccentric ms contraction with R arm in and AB position and appears to understand if he wants to do this exercise it would be appropriate. Pt was receptive to his HEP. Pt has met all his goals and is being discharged from PT today to his HEP. Physical Therapy Plan Discharge Physical Therapy Discharge Reasons Goals Met Discharge Comments The pt has done very well with therapy, thank you for your referral.
== END 2024-03-27 09:33 ==
LOC: PHYS 10:30
PROVIDERS: Family Provider Family Medicine; PCP Family Medicine; Referring Provider Family Medicine; Visit Provider Family Medicine
DX: M25.511 Pain in right shoulder (principal); G89.29 Other chronic pain; R29.3 Abnormal posture
CPT/HCPCS: 97035; 97110; 97112; 97140; 97162; 97530; 97535

== ENCOUNTER → 2024-11-22 11:48 | Outpatient (CLI) | payer OTHER, SELFPAY ==
--- NOTE | 2024-11-22 11:49 | DI.RAD.S_ITS ---
PROCEDURE: XR HIP W PEL IF DONE RT 2V INDICATIONS: Right hip pain TECHNIQUE: AP pelvis with lateral view(s) of the right hip(s). COMPARISON: None. FINDINGS: Bones: No fractures or dislocations. [id number] bilateral hip joint osteoarthritic changes are seen. No evidence of avascular necrosis of femoral head. Pelvic ring appears intact. No suspicious bony lesions. Soft tissues: The visualized bowel gas pattern is normal. Small calcifications adjacent to greater trochanter of right proximal femur. IMPRESSION: No acute pelvic or hip fracture. [id number] bilateral hip joint osteoarthritis. No evidence of avascular necrosis. Calcifications adjacent to greater trochanter and may represent sequelae from remote avulsion injury. Dictated by: Joe Patton M.D. on 11/22/2024 at 14:49 Approved by: Joe Patton M.D. on 11/22/2024 at 14:50
== END ==
LOC: RAD 11:49
PROVIDERS: Family Provider Family Medicine; PCP Family Medicine; Referring Provider Family Medicine; Visit Provider Family Medicine
DX: M16.0 Bilateral primary osteoarthritis of hip (principal); M25.551 Pain in right hip
CPT/HCPCS: 73502

== ENCOUNTER → 2024-12-10 08:23 | Outpatient (CLI) | payer OTHER, SELFPAY ==
[2024-12-10 09:05] LABS: Add Manual Diff / Slide Review NO; Basophils Absolute Auto 0 /uL (0-100); Basophils Percent Auto 0.5 % (0-2); Eosinophils Absolute Auto 100 /uL (0-450); Eosinophils Percent Auto 2.1 % (2-4); Hemoglobin 14.1 g/dL (13.5-17.5); Lymphocytes Absolute Auto 1600 /uL (1100-4500); Lymphocytes Percent Auto 22.4 % (25-40); Mean Corpuscular HGB Conc 34.5 % (30-36); Mean Corpuscular Hemoglobin 31.3 PG (26-34); Mean Corpuscular Volume 90.8 fL (80-100); Monocytes Absolute Auto 600 /uL (0-900); Monocytes Percent Auto 8.3 % (3-14); Neutrophils Absolute Auto 4700 /uL (1500-7000); Neutrophils Percent Auto 66.7 % (50-75); Platelet Count 310 X10^3/uL (150-400); Red Blood Cell Count 4.51 X10^6/uL (4.5-5.9); Red Cell Distribution Width 12.8 % (11.6-14.8)
[2024-12-10 09:32] LABS: Alanine Aminotransferase 26 IU/L (<50); Albumin 4.3 g/dL (3.5-5.0); Albumin Globulin Ratio 1.4 (1.0-2.8); Alkaline Phosphatase 35 U/L (38-126); Aspartate Aminotransferase 26 IU/L (17-59); BUN Creatinine Ratio 19.1 (6-22); Bilirubin Total 0.6 mg/dL (0.2-1.3); Blood Urea Nitrogen 17 mg/dL (9-20); Calcium 9.4 mg/dL (8.4-10.2); Carbon Dioxide 32 mmol/L (22-32); Chloride 102 mmol/L (98-107); Cholesterol 248 mg/dL (140-199); Estimated Glomerular Filt Rate > 60 mL/min (>60); Glucose 88 mg/dL (80-110); HDL Cholesterol 69 mg/dL (40-60); HEMOLYSIS < 15 (0-50); LDL Cholesterol Calculated 163 mg/dL (<100); Potassium 4.4 mmol/L (3.4-5.1); Sodium 137 mmol/L (137-145); Total Protein 7.3 g/dL (6.3-8.2); Triglycerides 79 mg/dL (35-150)
== END ==
PROVIDERS: Family Provider Family Medicine; PCP Family Medicine; Referring Provider Family Medicine; Visit Provider Family Medicine
DX: E78.5 Hyperlipidemia, unspecified (principal); R53.83 Other fatigue; D64.9 Anemia, unspecified; Z13.6 Encounter for screening for cardiovascular disorders
CPT/HCPCS: 36415; 80053; 80061; 85025

== ENCOUNTER → 2024-12-19 13:45 | Outpatient (CLI) | payer OTHER, SELFPAY | PROVIDERS: Family Provider Family Medicine; PCP Family Medicine; Visit Provider Family Medicine | DX: J02.9 Acute pharyngitis, unspecified (principal) | CPT/HCPCS: 87070 ==

== ENCOUNTER → 2024-12-26 12:49 | Outpatient (CLI) | payer OTHER, SELFPAY ==
--- NOTE | 2024-12-26 12:51 | DI.RAD.S_ITS ---
PROCEDURE: XR CHEST 2V INDICATIONS: cough, fevers TECHNIQUE: 2 views of the chest were acquired. COMPARISON: None. FINDINGS: Surgical changes and devices: None. Lungs and pleura: Lungs are clear. No pleural effusions or pneumothorax. Mediastinum: Mediastinal contours are normal. Heart size is normal. Bones and chest wall: No suspicious bony abnormalities. Accentuated thoracic kyphosis is seen. Soft tissues appear unremarkable. IMPRESSION: No focal infiltrates are seen. No acute cardiopulmonary abnormality is seen. Dictated by: Scott Culver M.D. on 12/26/2024 at 12:10 Approved by: Scott Culver M.D. on 12/26/2024 at 12:10
== END ==
PROVIDERS: Family Provider Family Medicine; PCP Family Medicine; Referring Provider Family Medicine; Visit Provider Family Medicine
DX: R05.9 Cough, unspecified (principal); R61 Generalized hyperhidrosis; M40.204 Unspecified kyphosis, thoracic region
CPT/HCPCS: 71046

== ENCOUNTER → 2025-05-09 12:07 | Outpatient (CLI) | payer OTHER, SELFPAY ==
[2025-05-09 12:57] LABS: Add Manual Diff / Slide Review NO; Basophils Absolute Auto 0 /uL (0-100); Basophils Percent Auto 1.1 % (0-2); Eosinophils Absolute Auto 100 /uL (0-450); Eosinophils Percent Auto 2.5 % (2-4); Hematocrit 41.7 % (41-53); Hemoglobin 14.2 g/dL (13.5-17.5); Lymphocytes Absolute Auto 1200 /uL (1100-4500); Lymphocytes Percent Auto 39.6 % (25-40); Mean Corpuscular Hemoglobin 31.5 PG (26-34); Mean Corpuscular Volume 92.9 fL (80-100); Monocytes Absolute Auto 400 /uL (0-900); Monocytes Percent Auto 11.2 % (3-14); Neutrophils Absolute Auto 1400 /uL (1500-7000); Neutrophils Percent Auto 45.6 % (50-75); Platelet Count 206 X10^3/uL (150-400); Red Blood Cell Count 4.49 X10^6/uL (4.5-5.9); Red Cell Distribution Width 13.3 % (11.6-14.8); White Blood Cell Count 3.2 X10^3/uL (4.5-11.0)
[2025-05-09 13:21] LABS: Alanine Aminotransferase 17 IU/L (<50); Albumin 4.5 g/dL (3.5-5.0); Albumin Globulin Ratio 1.7 (1.0-2.8); Alkaline Phosphatase 32 U/L (38-126); Aspartate Aminotransferase 25 IU/L (17-59); BUN Creatinine Ratio 22.4 (6-22); Bilirubin Total 0.8 mg/dL (0.2-1.3); Blood Urea Nitrogen 19 mg/dL (9-20); Calcium 9.8 mg/dL (8.4-10.2); Carbon Dioxide 29 mmol/L (22-32); Chloride 102 mmol/L (98-107); Estimated Glomerular Filt Rate > 60 mL/min (>60); Globulin 2.7 g/dL (1.7-4.1); Glucose 92 mg/dL (70-99); HEMOLYSIS < 15 (0-50); Potassium 4.9 mmol/L (3.4-5.1); Sodium 138 mmol/L (137-145); Total Protein 7.2 g/dL (6.3-8.2)
[2025-05-09 13:49] LABS: TSH w/ Reflex to FT4 1.29 uIU/mL (0.47-4.68)
== END ==
PROVIDERS: Family Provider Family Medicine; PCP Family Medicine; Referring Provider Family Medicine; Visit Provider Family Medicine
DX: R61 Generalized hyperhidrosis (principal); D64.9 Anemia, unspecified; R53.83 Other fatigue; D72.829 Elevated white blood cell count, unspecified; Z12.5 Encounter for screening for malignant neoplasm of prostate
CPT/HCPCS: 36415; 80053; 84153; 84154; 84443; 85025

== ENCOUNTER → 2025-08-02 11:35 | Outpatient (CLI) | payer OTHER, SELFPAY ==
[2025-08-02 13:37] LABS: Add Manual Diff / Slide Review NO; Hematocrit 42.5 % (41-53); Hemoglobin 14.5 g/dL (13.5-17.5); Lymphocytes Absolute Auto 1000 /uL (1100-4500); Mean Corpuscular HGB Conc 34.2 % (30-36); Mean Corpuscular Hemoglobin 31.4 PG (26-34); Mean Corpuscular Volume 91.7 fL (80-100); Platelet Count 218 X10^3/uL (150-400)
== END ==
PROVIDERS: Family Provider Family Medicine; PCP Family Medicine; Referring Provider Family Medicine; Visit Provider Family Medicine
DX: D72.819 Decreased white blood cell count, unspecified (principal)
CPT/HCPCS: 36415; 85025